=== PATIENT | female | born 1990 | race Caucasian/White ===

== ENCOUNTER 2019-07-24 10:51 | Emergency (ER) | payer BC, OTHER, SELFPAY ==
[2019-07-24 10:54] VITALS: BP 126/69; PULSE 89; RESP 14; TEMP 36.7; O2SAT 100; BMI 24.3
--- NOTE | 2019-07-24 11:12 | ED.VIS.GEN ---
History of Present Illness Chief Complaint: Vag Bld, Preg Informant: Patient Onset: Yesterday Context: Sudden Onset Timing: Continuous Quality: Vaginal bleeding due to subchorionic hemorrhage Current Severity: Mild Maximum Severity: Mild Worsened by: Nothing Relieved by: Nothing Associated Symptoms: No associated symptoms Narrative: Patient is a G1, P0 AB 0 woman who presents with vaginal bleeding started yesterday. She is used 3 pads since yesterday. She has not passed clots. She contacted her OB's office, Dr. Eliza Parrish. Staff instructed her to come to the emergency department. She has a negative blood. She states she has received RhoGam since this is her third episode of bleeding. She was seen by specialist in [place] for infertility. She denies orthostatic symptoms. She denies dysuria or urgency. She does report frequency. She denies nausea vomiting. Denies black or maroon stool. She denies bruising easily. Prior similar symptoms: Yes Recent Illness/Hospitalization: Yes - Last ultrasound , July 17 - Past Medical History (1) No significant past medical history Status: Acute Past Medical History - Allergies and Home Meds Allergies/Adverse Reactions: Allergies No Known Allergies Allergy (Verified 07/24/19 10:53) Primary Care Physician: Luis Enrique Gambino [Primary Care Provider] - Prior records reviewed: No Past Medical History: None Surgical History: no surgical history Lives: Spouse/ Significant Other Smoking Status: Never smoker Alcohol: None Drugs: None Review of Systems General: Denies: Chills, Fever, Malaise, Subjective, Sweats, Weight loss, - Cardiovascular: Denies: Chest pain, Palpitations Respiratory: Denies: Dyspnea, Cough, Dyspnea on exertion Gastrointestinal: Denies: Abdominal pain, Nausea, Vomiting, Diarrhea, Melena, Hematochezia Genitourinary: Denies: Dysuria, Hematuria, Frequency Musculoskeletal: Denies: Myalgias, Arthralgias, Neck pain, Back pain, Swelling, Extremity Pain, -, - Skin: Denies: Rash, Wounds Neurological: Denies: Weakness Physical Exam Vital Signs/Narrative: Vital Signs Temp Pulse Resp BP Pulse Ox 07/24/19 10:54 98.1 F 89 14 126/69 H 100 Inital Vital Signs reviewed: Yes General: Well nourished, Well developed, No Acute Distress Head: Normocephalic Eyes: Perrl, EOMI. Negative for: Pale conjunctiva, Scleral icterus ENT: Moist mucous membranes, No rhinorrhea Neck: Supple, Nontender, No lymphadenopathy, No JVD Cardiovascular: Regular rate, Regular rhythm, No murmurs, Normal S1, Normal S2 Respiratory: No distress, CTA bilaterally, Chest nontender Abdomen: Soft, Nontender, Nondistended, Normal bowel sounds Back: Nontender, Normal Inspection Skin: Normal color, No rash Neurological: Alert, Oriented x3, Cranial nerves II-XII grossly intact, Normal Strength, Normal Sensation Psychological: Normal affect, Normal Mood Diagnostic/Tx/Re-eval - Medical Decision Making Heart tones were ordered. Nurse states she was not able to get heart tones. Will perform transabdominal ultrasound to evaluate for viability of . Patient's history and physical was discussed with Dr. Cecil Dye covering for Dr. Eliza Parrish. Plan is outpatient follow-up next week. Procedures Procedure(s): His abdominal ultrasound reveals a single live IUP. Heartbeat approximately 140. Ovaries appear normal. ED Disposition - Plan for ED Patient: Disposition: Home or Assisted Living Diagnosis: Subchorionic hemorrhage in first trimester Instructions: POSSIBLE MISCARRIAGE (Threatened ) Referrals: Luis Enrique Gambino [Primary Care Provider] - Eliza Parrish MD [STAFF PHYSICIAN] - 3-5 Days Additional Instructions: Call Dr. Eliza Parrish's office to be seen next week. If you have bleeding of 1 or greater than 1 pad per hour for 4 continuous hours, return to the emergency department. If you are passing large clots, return to the emergency department. If you become lightheaded or have a low blood pressure, return to the emergency department
[2019-07-24 12:01] VITALS: RESP 14
== END 2019-07-24 12:01 | disposition home or self-care (01) ==
PROVIDERS: Emergency Provider Emergency Medicine; Family Provider Family Medicine; PCP Family Medicine
DX: O20.8 Other hemorrhage in early pregnancy (principal); Z3A.00 Weeks of gestation of pregnancy not specified
CPT/HCPCS: 99283

== ENCOUNTER → 2019-11-10 12:27 | Outpatient (CLI) | payer BC, SELFPAY ==
[2019-10-10 12:57] VITALS: BMI 24.3
[2019-11-10 12:52] LABS: Absolute Lymphocyte Count 2.06 X10^3/uL (0.83-4.51); Absolute Neutrophil Count 7.8 X10^3/uL (2.0-7.7); Basophil# 0.04 X10^3/uL; Basophil% 0.4 % (0-1); Eosinophil# 0.06 X10^3/uL; Eosinophils% 0.6 % (0-5); Hematocrit 33.4 % (37-47); Hemoglobin 11.2 g/dL (12.0-15.0); Lymphocyte # 2.06 X10^3/ul (4.0); Lymphocyte % 19.1 % (19-41); Mean Corp Hgb Conc 33.5 g/dL (32-36); Mean Corpuscular Hgb 30.9 pg (27.0-32.0); Mean Platelet Vol. 9.4 fl (6.2-12.0); Monocyte# 0.82 X10^3/uL; Monocyte% 7.6 % (0-10); NRBC Flagged by Analyzer 0 % (0-5); Neutrophil # 7.75 X10^3/uL (2.7-7.7); Neutrophil % 71.6 % (47-70); Platelet Count 244 K/mm3 (150-450); RBC Distribution Width CV 11.9 % (11.6-14.6); RBC Distribution Width SD 40.3 fl (35.1-43.9); Red Blood Count 3.63 M/mm3 (4.2-5.4); White Blood Count 10.8 K/mm3 (4.4-11.0)
[2019-11-10 13:00] LABS: Glucose Challenge Gest 1H 50g 118 mg/dL (70-140)
== END ==
PROVIDERS: Nurse Practitioner Women's Health; PCP Family Medicine; Referring Provider Obstetrics & Gynecology; Visit Provider Obstetrics & Gynecology
DX: O26.899 Other specified pregnancy related conditions, unspecified trimester (principal); Z67.91 Unspecified blood type, Rh negative
CPT/HCPCS: 36415; 82950; 85025; 86850; 86900; 86901

== ENCOUNTER → 2020-01-09 16:14 | Outpatient (CLI) | payer BC, SELFPAY ==
[2020-01-09 15:09] VITALS: BMI 24.3
== END ==
PROVIDERS: PCP Family Medicine; Referring Provider Obstetrics & Gynecology; Visit Provider Obstetrics & Gynecology
DX: O09.90 Supervision of high risk pregnancy, unspecified, unspecified trimester (principal); Z3A.00 Weeks of gestation of pregnancy not specified
CPT/HCPCS: 87081

== ENCOUNTER 2020-01-31 02:27 | Inpatient (IN) | payer BC, SELFPAY ==
[2020-01-30 11:38] VITALS: BMI 24.3
[2020-01-31] VITALS (24 sets, daily range): BP systolic 104–133; BP diastolic 63–84; PULSE 72–100; RESP 16; TEMP 35.7–37.9; O2SAT 97–98; BMI 29.6
[2020-01-31] MEDS: Lactated Ringers 500 ML 999 ML IV (02:25)
[2020-01-31 02:47] LABS: Absolute Lymphocyte Count 1.89 X10^3/uL (0.83-4.51); Absolute Neutrophil Count 10.3 X10^3/uL (2.0-7.7); Basophil# 0.04 X10^3/uL; Basophil% 0.3 % (0-1); Eosinophil# 0.04 X10^3/uL; Eosinophils% 0.3 % (0-5); Hematocrit 34.5 % (37-47); Hemoglobin 11.4 g/dL (12.0-15.0); Lymphocyte # 1.89 X10^3/ul (4.0); Lymphocyte % 14.1 % (19-41); Mean Corpuscular Hgb 27.5 pg (27.0-32.0); Mean Corpuscular Volume 83.3 fL (81-99); Mean Platelet Vol. 10.3 fl (6.2-12.0); Monocyte% 7.5 % (0-10); NRBC Flagged by Analyzer 0 % (0-5); Neutrophil # 10.34 X10^3/uL (2.7-7.7); Neutrophil % 77.4 % (47-70); Platelet Count 264 K/mm3 (150-450); RBC Distribution Width CV 13.5 % (11.6-14.6); RBC Distribution Width SD 40.5 fl (35.1-43.9); Red Blood Count 4.14 M/mm3 (4.2-5.4); White Blood Count 13.4 K/mm3 (4.4-11.0)
[2020-01-31] MEDS: Lactated Ringers 1,000 ML 50 ML IV (02:56)
--- NOTE | 2020-01-31 03:42 | HP.PCM_ITS ---
- Problem List (1) Subchorionic hematoma Status: Acute Qualifiers: Comment: persistent stable. plan weekly nsts until delivery, deliver at 39 weeks. growth q 4 weeks (2) Marginal insertion of umbilical cord affecting management of mother Status: Acute Comment: nl fu growth (3) Rh negative status during Status: Acute Qualifiers: Comment: Rhogam given at [facility] on 06/10/19 (4) History of in vitro fertilization Status: Acute Comment: 2nd transfer. plan echo at 22-24 (5) Status: Acute Qualifiers: Comment: normal genetics and carrier screening. missed getting AFP. Neg urine culture at [facility]. Anatomy US normal. Growth US normal (6) Supervision of high risk , antepartum Status: Acute Comment: PRR ANUPAM 02/01/20 gender surprise Lexx (7) PCOS (polycystic ovarian syndrome) Status: Chronic History Date of Admission: 01/31/20 Final ANUPAM: 02/01/20 Gestational age: 39 Weeks and 6 Days History of this : This is a 29 year-old, G 1P0, at 39 weeks gestational age presents IAL 6 cm. she denies any significant vb lof admits good fm. she has had a complicated by IVF, marginal cord insertion, and a small persistent subchorionic hematoma. testing has been reassuring Medical History: Medical History (Last Reviewed 01/30/20 @ 10:48 by Florence Keen) PCOS (polycystic ovarian syndrome) (Chronic) E28.2 Allergies No Known Allergies Allergy (Verified 01/30/20 10:48) Home Medications: Home Medications vitamin #56-iron 35 mg and 5 mg-folic acid 1 mg-dha capsule 1 cap PO QHS 01/31/20 Smoking Status: Never smoker Number of Fetus(es): 1 NST - FHR Rate Baby A Baseline: 130 Variability:: Moderate Accelerations:: 15 x 15 Decelerations:: None NST Reactive:: Yes FHR Category:: Category I Uterine Activity:: q 2-3 History Past Pregnancies: Past Pregnancies Delivery Date Name GA/ Weeks Outcome Route Wt Sex Labor Length Anesthesia Delivery Location Provider FOB Labs: Mom's Labs & Results 01/31/20 01/31/20 02:25 02:25 WBC 13.4 H RBC 4.14 L Hgb 11.4 L Hct 34.5 L MCV 83.3 MCH 27.5 MCHC 33.0 RDW Std Deviation 40.5 RDW Coeff of Jayce 13.5 Plt Count 264 MPV 10.3 Immature Gran % (Auto) 0.400 Neut % (Auto) 77.4 H Lymph % (Auto) 14.1 L Meagher % (Auto) 7.5 Eos % (Auto) 0.3 Baso % (Auto) 0.3 Absolute Neuts (auto) 10.3 H Absolute Lymphs (auto) 1.89 Nucleated RBC % 0 Blood Type Pending Antibody Screen Pending Course Did the patient receive Yes care? Labs Blood Type: A RH: NEGATIVE RPR/VDRL/Syphilis Nonreactive Rubella status Immune HbSAg Negative Date Done: 07/01/19 Chlamydia Negative Gonorrhea Negative HIV/AIDS Non-Reactive Group B Strep: Negative Social History Marital Status: Alleged father Lexx Hx Smoking No Smoking Status Never smoker Expected Infant Delivery Method: Spontaneous Vaginal Review of Systems Constitutional: Denies: Fever, Malaise Eyes: Denies: Blurred vision, Vision Change HEENT: Denies: Head Aches, Visual Changes Cardiovascular: Denies: Chest Pain, Palpitations Respiratory: Denies: Cough, Shortness of Breath, Wheezing Gastrointestinal: Denies: Abdominal Pain, Diarrhea, Nausea, Vomiting Genitourinary: Denies: Dysuria, Hematuria Musculoskeletal: Denies: Joint Pain, Muscle pain Skin: Denies: Lesions, Rash Neurological: Denies: Blurred vision, Focal weakness, Headaches Psychiatric: Denies: Anxiety, Depression Endocrine: Denies: Heat/ Cold Intolerance Hematologic/ Lymphatic: Denies: Easy Bruising, Easy Bleeding Physical Exam Vitals: Vital Signs Temp Pulse BP Pulse Ox 97.3 F L 79 127/84 H 98 01/31/20 03:32 01/31/20 03:32 01/31/20 03:32 01/31/20 02:34 General: Alert, Cooperative, No apparent distress HEENT: Atraumatic, Normocephalic. Negative for: Thyromegaly, Lymphadenopathy Cardiovascular: Regular rate Lungs: Normal air movement Abdomen: Soft, Non Tender, Gravid Neurological: Deep Tendon Reflexes 2+/4 and Symmetrical, Neuro grossly intact. Negative for: Clonus VP RESPIRATORY: Normal external genitalia. Negative for: Vulvar lesions Estimated gestational size: Appropriate for gestational size Presentation: Cephalic Assessment/Plan All Active Problems (Last Reviewed 01/30/20 @ 10:48 by Florence Keen) Subchorionic hematoma (Acute) Marginal insertion of umbilical cord affecting management of mother (Acute) Rh negative status during (Acute) History of in vitro fertilization (Acute) (Acute) Supervision of high risk , antepartum (Acute) No significant past medical history (Resolved) Subchorionic hemorrhage (Resolved) This is a 29 year-old, at 39 weeks gestational age presents IAL. Patient presents IAL, plan expectant management for , AROM light Mec. Pain management: Prefers epidural if able. GBS negative. Management of any complications: IVF, marginal cord insertion, subchorionic hematoma I have reviewed the [facility] and made any clinically relevant updates. Essential Procedure Criteria Procedure Essential: Yes Criteria Note: On 12/23/2019 the [place] Department of Health ([facility]) Public Order signed by [facility] Director Torri Sanders M.D., regarding the Management of Non- Essential Surgeries and Procedures for the purpose of preserving Personal Protective Equipment (PPE) and critical hospital capacity and resources within [place] went into effect as of 12/24/2019 at 5:00PM. According to the [facility] Public Order: This action will remain in full force and effect until the State of Emergency declared by the Governor no longer exists or the Director of the [facility] rescinds or modifies this Order.. This [facility] order stated all non-essential or elective surgeries and procedures that utilize PPE should be delayed unless there is undue risk to the current or future health of a patient. After reviewing the aforementioned [facility] Public Order and the patients clinical case, I have determined that the scheduled procedure meets the criteria to go forward. Risk to Patient if Procedure Delayed: Threat of permanent dysfunction of an extremity or organ system
[2020-01-31] MEDS: Oxytocin 30 units/NS 500 ml 30 UNITS/500 ML IV.SOLN 334 UNITS IV (05:37)
--- NOTE | 2020-01-31 06:18 | PCM.OPRPT ---
Problem List (1) Subchorionic hematoma Status: Acute Qualifiers: Comment: persistent stable. plan weekly nsts until delivery, deliver at 39 weeks. growth q 4 weeks (2) Marginal insertion of umbilical cord affecting management of mother Status: Acute Comment: nl fu growth (3) Rh negative status during Status: Acute Qualifiers: Comment: Rhogam given at [facility] on 06/10/19 (4) History of in vitro fertilization Status: Acute Comment: 2nd transfer. plan echo at 22-24 (5) Status: Acute Qualifiers: Comment: normal genetics and carrier screening. missed getting AFP. Neg urine culture at [facility]. Anatomy US normal. Growth US normal (6) Supervision of high risk , antepartum Status: Acute Comment: PRR ANUPAM 02/01/20 gender surprise Lexx (7) PCOS (polycystic ovarian syndrome) Status: Chronic Vaginal Delivery Maternal Presentation: Active Labor al [id number] Amniotic Membrane Rupture Type: Artificial Amniotic Fluid Description: Clear Final ANUPAM: 02/01/20 Gestational age: 39 Weeks and 6 Days Date of Procedure: 01/31/20 Pre-Operative Diagnosis: ial Post-Operative Diagnosis: same Surgery/ Procedure Performed: Spontaneous Vaginal Delivery Type of Anesthesia: Local with 1% lidocaine Description of Procedure: Patient began pushing and delivered the head in the BRENDA presentation. The head was delivered atraumatically and a loose nuchal cord ?1 was identified and easily reduced over the infant's head. The anterior and posterior shoulders delivered without complication followed by the rest of the infant and the infant was placed on the maternal abdomen. Delayed cord clamping was employed for approximately 60 seconds. Cord was clamped and cut and gentle traction was applied to the cord and the placenta delivered spontaneously immediately following it was noted to be intact with three-vessel cord. The perineum and vagina were inspected and noted to have a second degree laceration that was injected with lidocaine and repaired in the usual fashion with 3-0 vicryl rapide. EBL was 300 cc. Patient and tolerated delivery well. Presentation: BRENDA Placental Delivery Description: Spontaneous Placenta Disposition: [facility] Cord Entanglement: Around neck x 1, loose Estimated Blood Loss: 300 Infant A gender: Male (1 minute): 8 (5 minute): 9 Episiotomy Description: None Laceration: Perineal Extension/lac, 2nd degree Medications given after delivery: IV Pitocin Complications: None Multi Select Codes - Urinary/Genital Urinary/Genital CPT Codes: 90209 Vaginal Delivery [facility]
[2020-01-31] MEDS: Acetaminophen 500 MG Tablet 1000 MG PO ×2 (07:10→19:37)
[2020-01-31] MEDS: Naproxen 250 MG Tablet 500 MG PO (13:09)
[2020-02-01 00:31] VITALS: TEMP 36.8
[2020-02-01 00:32] VITALS: BP 103/65; PULSE 86
[2020-02-01 00:33] VITALS: BP 103/65; PULSE 86; RESP 18; TEMP 36.8
[2020-02-01 05:02] VITALS: BP 113/67; PULSE 86; RESP 18; TEMP 37.1
[2020-02-01 08:00] VITALS: BP 122/77; PULSE 83; RESP 15; TEMP 36.4
[2020-02-01 08:27] VITALS: BP 122/77; PULSE 83; TEMP 36.4
--- NOTE | 2020-02-01 10:59 | PCM.PN.OB ---
Subjective: doing well no complaints pain controlled no CP SOB N V ambulating well tolerating po lochia moderate, going well - Physical Exam Vitals/I&O's: Vital Signs Temp Pulse Resp BP Pulse Ox 97.5 F L 83 15 122/77 H 98 02/01/20 08:27 02/01/20 08:27 02/01/20 08:00 02/01/20 08:27 01/31/20 07:22 Oxygen Delivery Method Room Air Weight: 183 lb 8 oz Body Mass Index (BMI) 29.6 Intake and Output for Last 24 Hours 01/30/20 01/31/20 02/01/20 23:59 23:59 23:59 Intake Total 1134.17 / 1134.17 Balance 1134.17 / 1134.17 General: Alert, Oriented x3 Laboratory Results 01/31/20 13:48: Screen NEGATIVE, Baby's Blood Type A POSITIVE, Baby's CHOCO NEGATIVE Current Medications Acetaminophen (Tylenol) 1,000 mg PO Q8H PRN PRN PRN Reason: Pain Score 1-3/10 Last Admin: 01/31/20 19:37 Dose: 1,000 mg Documented by: Bisacodyl (Dulcolax) 10 mg RECTAL UD PRN PRN Reason: If no BM Dibucaine (Dibucaine) 1 applic TOPICAL TID PRN PRN; Protocol PRN Reason: Discomfort Hydrocortisone (Hytone) 1 applic TOPICAL TID PRN PRN; Protocol PRN Reason: Discomfort Methylergonovine Maleate (Methergine) 0.2 mg IM X1 PRN PRN Reason: Excess bleeding/uterine atony Naproxen (Naprosyn) 500 mg PO Q8H PRN PRN PRN Reason: Pain Score 1-3/10 Last Admin: 01/31/20 13:09 Dose: 500 mg Documented by: Ondansetron HCl (Zofran) 4 mg IV Q4H PRN PRN PRN Reason: Nausea Oxycodone HCl (Oxyir) 5 - 10 mg PO Q4H PRN PRN PRN Reason: Pain Score 4-10/10 Senna/Docusate Sodium (Senokot-S, Chantel-Colace) 1 - 2 tablet PO DAILY PRN PRN PRN Reason: Constipation Simethicone (Mylicon) 80 mg PO PCHS PRN PRN Reason: Indigestion/Stomach pain Sodium Chloride () 5 - 15 ml IV UD PRN PRN Reason: SALINE FLUSH Medical Necessity - Tobacco Use Smoking Status: Never smoker Assessment/Plan All Active Problems (Last Reviewed 01/30/20 @ 10:48 by Florence Keen) Subchorionic hematoma (Acute) Marginal insertion of umbilical cord affecting management of mother (Acute) Rh negative status during (Acute) History of in vitro fertilization (Acute) (Acute) Supervision of high risk , antepartum (Acute) No significant past medical history (Resolved) Subchorionic hemorrhage (Resolved) s/p PPD # 1 1. routine post delivery care 2. breast feeding- support given 3. rh negative 4. rubella immune
--- NOTE | 2020-02-01 11:00 | DCINST_ITS ---
Discharge Diet: No Restrictions Discharge Activity: Return to Normal Activity, May not drive while taking narcotic pain medications., May Shower May resume sexual activity in: 4-6 weeks Call your doctor if your incision/area has: Continuous Slow Oozing, Sudden Increased Bleeding, Increased Pain/ Swelling, Increased Redness, Foul Smelling Discharge Additional Instructions: If you experience any of the following, contact your healthcare provider. * Bleeding that soaks a pad every hour for 2 hours * Fever 100.4 or higher * Unrelieved incision or abdominal pain * Swelling, redness, discharge or bleeding from your incision or episiotomy site * Your incision begins to separate * Problems urinating (including inability to urinate or burning while urinating). * Visual changes * Severe headache * Flu-like symptoms * Pain or redness in one of both of your breasts * Pain, warmth, tenderness or swelling in your legs, especially the calf area * Frequent nausea and vomiting * Symptoms of depression or anxiety If you experience any of the following, call 911 or go to the nearest Emergency Room. * Chest pain * Problems breathing * Seizure activity * Partial or complete paralysis of a body part, slurred speech, weakness or drooping of the face, or a sudden inability to walk or hold your balance Allergies/Adverse Reactions: Allergies No Known Allergies Allergy (Verified 01/30/20 10:48) Medications to take at Discharge vitamin #56-iron 35 mg and 5 mg-folic acid 1 mg-dha capsule 1 cap PO QHS 01/31/20 Please Follow Up With: Eliza Parrish MD - [phone] When: Call to make an appointment with your doctor in 6 weeks. If you had elevated Blood pressure or 4th degree laceration you will need to be seen in 2 weeks. Primary Care Physician: Luis Enrique Gambino [Primary Care Provider] - Test Results: Test results from this visit will be discussed in further detail at your follow- up appointment, if applicable.
--- NOTE | 2020-02-01 11:00 | PCM.DCVAG ---
Discharge Diet: No Restrictions Discharge Activity: Return to Normal Activity, May not drive while taking narcotic pain medications., May Shower May resume sexual activity in: 4-6 weeks Call your doctor if your incision/area has: Continuous Slow Oozing, Sudden Increased Bleeding, Increased Pain/ Swelling, Increased Redness, Foul Smelling Discharge Additional Instructions: If you experience any of the following, contact your healthcare provider. Bleeding that soaks a pad every hour for 2 hours Fever 100.4 or higher Unrelieved incision or abdominal pain Swelling, redness, discharge or bleeding from your incision or episiotomy site Your incision begins to separate Problems urinating (including inability to urinate or burning while urinating). Visual changes Severe headache Flu-like symptoms Pain or redness in one of both of your breasts Pain, warmth, tenderness or swelling in your legs, especially the calf area Frequent nausea and vomiting Symptoms of depression or anxiety If you experience any of the following, call 911 or go to the nearest Emergency Room. Chest pain Problems breathing Seizure activity Partial or complete paralysis of a body part, slurred speech, weakness or drooping of the face, or a sudden inability to walk or hold your balance Allergies/Adverse Reactions: Allergies No Known Allergies Allergy (Verified 01/30/20 10:48) Medications to take at Discharge vitamin #56-iron 35 mg and 5 mg-folic acid 1 mg-dha capsule 1 cap PO QHS 01/31/20 Please Follow Up With: Eliza Parrish MD - [phone] When: Call to make an appointment with your doctor in 6 weeks. If you had elevated Blood pressure or 4th degree laceration you will need to be seen in 2 weeks. Primary Care Physician: Luis Enrique Gambino [Primary Care Provider] - Test Results: Test results from this visit will be discussed in further detail at your follow-up appointment, if applicable.
== END 2020-02-01 11:50 | disposition home or self-care (01) | DRG 807 ==
LOC: WPOUT 02:29 → WP 02:29
PROVIDERS: Admitting Provider Obstetrics & Gynecology; PCP Family Medicine; Referring Provider Obstetrics & Gynecology; Visit Provider Obstetrics & Gynecology
DX: O43.193 Other malformation of placenta, third trimester (principal); O77.0 Labor and delivery complicated by meconium in amniotic fluid; O69.81X0 Labor and delivery complicated by cord around neck, without compression, not applicable or unspecified; O70.1 Second degree perineal laceration during delivery; E28.2 Polycystic ovarian syndrome; Z3A.39 39 weeks gestation of pregnancy; Z37.0 Single live birth
CPT/HCPCS: 36415; 59025; 59050; 85025; 85461; 86850; 86870; 86900; 86901; 90384; 99218; J7120; G0378; J2790

== ENCOUNTER → 2020-03-18 | Outpatient (CLI) | payer BC, SELFPAY ==
[2020-03-18 09:52] VITALS: BMI 29.6
[2020-03-22 14:15] LABS: HPV Reflexed? NOT INDICATED
== END | disposition home or self-care (01) ==
LOC: LABSPEC 13:17
PROVIDERS: PCP Family Medicine; Visit Provider Obstetrics & Gynecology
DX: Z12.4 Encounter for screening for malignant neoplasm of cervix (principal)
CPT/HCPCS: 88175; G0145

== ENCOUNTER 2021-12-28 08:04 | Outpatient (CLI) | payer BC, SELFPAY ==
[2021-12-28 08:26] LABS: Absolute Lymphocyte Count 1.95 X10^3/uL (0.83-4.51); Absolute Neutrophil Count 9.5 X10^3/uL (2.0-7.7); Basophil# 0.03 X10^3/uL; Basophil% 0.2 % (0-1); Eosinophil# 0.08 X10^3/uL; Eosinophils% 0.6 % (0-5); Hematocrit 34.7 % (37-47); Hemoglobin 11.9 g/dL (12.0-15.0); Lymphocyte # 1.95 X10^3/ul (0.83-4.51); Lymphocyte % 15.7 % (19-41); Mean Corp Hgb Conc 34.3 g/dL (32-36); Mean Corpuscular Hgb 30.6 pg (27.0-32.0); Mean Corpuscular Volume 89.2 fL (81-99); Mean Platelet Vol. 9.3 fl (6.2-12.0); Monocyte# 0.78 X10^3/uL; Monocyte% 6.3 % (0-10); NRBC Flagged by Analyzer 0 % (0-5); Neutrophil # 9.51 X10^3/uL (2.7-7.7); Neutrophil % 76.6 % (47-70); Platelet Count 262 K/mm3 (150-450); RBC Distribution Width CV 12.3 % (11.6-14.6); RBC Distribution Width SD 39.2 fl (35.1-43.9); Red Blood Count 3.89 M/mm3 (4.2-5.4); White Blood Count 12.4 K/mm3 (4.4-11.0)
[2021-12-28 08:51] LABS: Glucose Challenge Gest 1H 50g 134 mg/dL (70-140)
== END 2021-12-28 23:59 | disposition home or self-care (01) ==
PROVIDERS: PCP Family Medicine; Referring Provider Obstetrics & Gynecology; Visit Provider Obstetrics & Gynecology
DX: O26.899 Other specified pregnancy related conditions, unspecified trimester (principal); Z67.91 Unspecified blood type, Rh negative
CPT/HCPCS: 36415; 82950; 85025; 86850; 86900; 86901

== ENCOUNTER 2022-01-04 07:47 | Outpatient (CLI) | payer BC, SELFPAY ==
--- NOTE | 2022-01-04 07:48 | US_ITS ---
STUDY: SECOND AND THIRD TRIMESTER OBSTETRICAL ULTRASOUND REASON FOR EXAM: Female, 31 years old growth LMP: 06/08/2021. TECHNIQUE: Transabdominal TECHNICAL QUALITY: Adequate. PRIOR ULTRASOUND: None. FINDINGS: There is a single intrauterine fetus. The fetus is in a cephalic presentation. There is demonstrated cardiac activity with a heart rate of 126 bpm. There is a normal amniotic fluid volume. The largest amniotic fluid pocket measures 4.0 cm. The amniotic fluid index (FRANCIS) is 11.8 cm. The placenta is posterior in location and is not low lying. There are Grade 0 placental changes. The cervix measures 4.8 cm in length. The adnexal regions are not visualized. BIOMETRY: BPD: 7.72 cm: 30 weeks, 6 days HC: 28.87 cm: 31 weeks, 5 days AC: 26.71 cm: 30 weeks, 5 days FL: 5.94 cm: 30 weeks, 6 days CI: 77% FL/BPD: 77% FL/HC: FL/AC: 22% HC/AC: 1.08 age by current US: 31 weeks, 0 days. ANUPAM by current US: 03/08/2022. Estimated weight: 1676 grams, +/- 251 grams, 71 %. Age by LMP: 30 weeks, 0 days. ANUPAM by LMP: 03/15/2022. US/OB Limited With Biometrics IMPRESSION: Single live intrauterine gestation with a mean gestational age of 31 weeks. Electronically Signed: Evens Tobias MD at 8:59 EDT ,
== END 2022-01-04 23:59 | disposition home or self-care (01) ==
LOC: OPUS 07:47
PROVIDERS: PCP Family Medicine; Referring Provider Nurse Practitioner Women's Health; Visit Provider Nurse Practitioner Women's Health
DX: O09.93 Supervision of high risk pregnancy, unspecified, third trimester (principal); Z78.9 Other specified health status; Z3A.30 30 weeks gestation of pregnancy
CPT/HCPCS: 76816

== ENCOUNTER → 2022-02-10 | Outpatient (CLI) | payer BC, SELFPAY ==
[2022-02-10 11:17] LABS: Absolute Neutrophil Count 7.7 X10^3/uL (2.0-7.7); Basophil# 0.05 X10^3/uL; Basophil% 0.5 % (0-1); Eosinophil# 0.05 X10^3/uL; Eosinophils% 0.5 % (0-5); Hematocrit 35.9 % (37-47); Hemoglobin 12.1 g/dL (12.0-15.0); Lymphocyte % 18.7 % (19-41); Mean Corp Hgb Conc 33.7 g/dL (32-36); Mean Corpuscular Volume 86.1 fL (81-99); Monocyte# 0.79 X10^3/uL; Monocyte% 7.4 % (0-10); NRBC Flagged by Analyzer 0 % (0-5); Neutrophil # 7.73 X10^3/uL (2.7-7.7); Neutrophil % 72.2 % (47-70); Platelet Count 277 K/mm3 (150-450); RBC Distribution Width CV 12.9 % (11.6-14.6); RBC Distribution Width SD 39.4 fl (35.1-43.9); Red Blood Count 4.17 M/mm3 (4.2-5.4); White Blood Count 10.7 K/mm3 (4.4-11.0)
[2022-02-10 11:34] LABS: ALB/GLOB Ratio 0.6 RATIO (0.9-2.4); AST(SGOT) 17 U/L (15-37); Alanine Aminotransfer ALT/SGPT 15 U/L (13-56); Albumin, Serum 2.4 g/dL (3.2-5.0); Alkaline Phosphatase 164 U/L (45-117); Anion Gap 6 (5-15); BUN 11 mg/dL (7-18); BUN/Creat Ratio 16.8 RATIO (10-20); Calcium,Total 8.2 mg/dL (8.5-10.1); Chloride 104 mmol/L (98-107); Creatinine, Serum 0.66 mg/dL (0.55-1.02); EST Glomerular Filtration Rate 113 mL/min (>60); Est Glom Filt Rate - Afr Amer 136 mL/min (>60); Globulin 4.1 g/dL (2.2-4.2); Glucose 87 mg/dL (74-106); Potassium 4.2 mmol/L (3.5-5.1); Protein, Total 6.5 g/dL (6.4-8.2); Sodium Level 135 mmol/L (136-145)
== END | disposition home or self-care (01) ==
LOC: PAVLAB 10:59
PROVIDERS: PCP Family Medicine; Referring Provider Nurse Practitioner Women's Health; Visit Provider Nurse Practitioner Women's Health
DX: O12.10 Gestational proteinuria, unspecified trimester (principal)
CPT/HCPCS: 36415; 80053; 85025

== ENCOUNTER → 2022-02-10 | Outpatient (CLI) | payer BC, SELFPAY ==
[2022-02-10 11:22] LABS: Protein:Creat Ratio 645 mg/g CRE (0-200)
== END | disposition home or self-care (01) ==
LOC: LABSPEC 11:01
PROVIDERS: PCP Family Medicine; Referring Provider Nurse Practitioner Women's Health; Visit Provider Nurse Practitioner Women's Health
DX: O12.10 Gestational proteinuria, unspecified trimester (principal)
CPT/HCPCS: 82570; 84156

== ENCOUNTER → 2022-02-13 | Outpatient (CLI) | payer BC, SELFPAY ==
[2022-02-13 09:15] LABS: Absolute Lymphocyte Count 1.71 X10^3/uL (0.83-4.51); Absolute Neutrophil Count 7.2 X10^3/uL (2.0-7.7); Basophil# 0.07 X10^3/uL; Basophil% 0.7 % (0-1); Eosinophil# 0.07 X10^3/uL; Eosinophils% 0.7 % (0-5); Hematocrit 37.5 % (37-47); Hemoglobin 12.5 g/dL (12.0-15.0); Lymphocyte # 1.71 X10^3/ul (0.83-4.51); Lymphocyte % 17.1 % (19-41); Mean Corp Hgb Conc 33.3 g/dL (32-36); Mean Corpuscular Hgb 28.7 pg (27.0-32.0); Mean Platelet Vol. 10.1 fl (6.2-12.0); Monocyte# 0.86 X10^3/uL; Monocyte% 8.6 % (0-10); NRBC Flagged by Analyzer 0 % (0-5); Neutrophil # 7.22 X10^3/uL (2.7-7.7); Neutrophil % 72.4 % (47-70); Platelet Count 261 K/mm3 (150-450); RBC Distribution Width CV 13.1 % (11.6-14.6); RBC Distribution Width SD 40.5 fl (35.1-43.9); Red Blood Count 4.36 M/mm3 (4.2-5.4)
[2022-02-13 09:42] LABS: Protein, Urine (Random) 297.6 mg/dL (<11.9); Protein:Creat Ratio 640 mg/g CRE (0-200)
[2022-02-13 09:56] LABS: ALB/GLOB Ratio 0.5 RATIO (0.9-2.4); AST(SGOT) 17 U/L (15-37); Alanine Aminotransfer ALT/SGPT 14 U/L (13-56); Albumin, Serum 2.4 g/dL (3.2-5.0); Alkaline Phosphatase 187 U/L (45-117); Anion Gap 6 (5-15); BUN 13 mg/dL (7-18); BUN/Creat Ratio 17.9 RATIO (10-20); Calcium,Total 8.7 mg/dL (8.5-10.1); Chloride 105 mmol/L (98-107); Creatinine, Serum 0.73 mg/dL (0.55-1.02); EST Glomerular Filtration Rate 100 mL/min (>60); Est Glom Filt Rate - Afr Amer 121 mL/min (>60); Globulin 4.6 g/dL (2.2-4.2); Glucose 76 mg/dL (74-106); Potassium 4.6 mmol/L (3.5-5.1); Sodium Level 136 mmol/L (136-145)
== END | disposition home or self-care (01) ==
LOC: PAVLAB 08:58
PROVIDERS: PCP Family Medicine; Referring Provider Nurse Practitioner Women's Health; Visit Provider Nurse Practitioner Women's Health
DX: O12.10 Gestational proteinuria, unspecified trimester (principal); Z3A.00 Weeks of gestation of pregnancy not specified
CPT/HCPCS: 36415; 80053; 82570; 84156; 85025

== ENCOUNTER → 2022-02-14 | Outpatient (CLI) | payer BC, SELFPAY ==
--- NOTE | 2022-02-14 07:47 | US_ITS ---
STUDY: SECOND AND THIRD TRIMESTER OBSTETRICAL ULTRASOUND - LIMITED REASON FOR EXAM: Female, 31 years old growth -- 38 weeks LMP: 06/08/2021. PRIOR ULTRASOUND: Comparison is made with prior examination dated 01/04/2022. TECHNIQUE: Transabdominal TECHNICAL QUALITY: Adequate. FINDINGS: There is a single intrauterine fetus. The fetus is in a cephalic presentation. There is demonstrated cardiac activity with a heart rate of 126 bpm. There is a normal amniotic fluid volume. The largest amniotic fluid pocket measures 4.8 cm x 2.1 cm. The amniotic fluid index (FRANCIS) is 11.8 cm. The placenta is posterior in location and is not low lying. There are Grade 1 placental changes. The cervix measures 3.3 cm in length. BIOMETRY: BPD: 8.67 cm: 34 weeks, 6 days HC: 32.78 cm: 37 weeks, 1 days AC: 31.91 cm: 35 weeks, 5 days FL: 7.03 cm: 36 weeks, 0 days Age by LMP: 35 weeks, 6 days. ANUPAM by LMP: 03/15/2022. age by prior US: 36 weeks, 6 days. ANUPAM by prior US: 03/08/2022. age by current US: 35 weeks, 6 days. ANUPAM by current US: 03/15/2022. Estimated weight: 2791 grams, +/- 419 grams, 51 percentile. US/OB Limited With Biometrics IMPRESSION: Single live intrauterine gestation with a mean gestational age of 36 weeks and 6 days. The measurements obtained today fall within the normal expected range. Electronically Signed: Evens Tobias MD at 13:56 EDT ,
== END | disposition home or self-care (01) ==
LOC: OPUS 07:46
PROVIDERS: PCP Family Medicine; Referring Provider Obstetrics & Gynecology; Visit Provider Obstetrics & Gynecology
DX: O09.813 Supervision of pregnancy resulting from assisted reproductive technology, third trimester (principal); Z3A.38 38 weeks gestation of pregnancy
CPT/HCPCS: 76816

== ENCOUNTER 2022-02-16 09:15 | Outpatient (CLI) | payer BC, SELFPAY ==
[2022-02-16 09:42] VITALS: TEMP 36.3; O2SAT 97
[2022-02-16 09:43] VITALS: BP 125/87; PULSE 77
[2022-02-16 09:44] VITALS: BMI 29.1
[2022-02-16 09:50] VITALS: PULSE 88; O2SAT 97
--- NOTE | 2022-02-16 10:04 | OB.TRI.HP_ITS ---
HPI - General HPI Narrative KAY PIRES, is a 31 F who presents to L&D to rule out PIH Maternal Data Information ANUPAM Calculator Estimated Delivery Date Method Current WG Current Estimate 03/15/22 Manual 38w 6d PFSH PFSH Medical History (Updated 03/07/22 @ 08:[address] Eun Dominguez, DO) History of severe pre-eclampsia PCOS (polycystic ovarian syndrome) Home Medications PNV #[id number] acid-dha 1 cap PO QHS 01/31/20 [History Last Taken 02/22/22 0900] Allergy/AdvReac Type Severity Reaction Status Date / Time No Known Allergies Allergy Verified 03/01/22 11:15 Social History Smoking Status: Never smoker alcohol intake: never substance use type: does not use caffeine: No what type of physical activity do you participate in: none seatbelt use: always do you feel safe at home: Yes additional social history: [place] History 2 Elective abortions Hx Para 2 Spontaneous abortions Hx # Term Pregnancies Ectopic pregnancies Hx # Pregnancies Multiple births # of living children 2 Past Pregnancies Del. Date Name GA/Weeks Outcome Route Bth Weight Gen Labor Lgth Anesthesia Del Locatn Provider FOB 01/31/20 Junior 39 live - full term 7lbs 13oz Male l ocal [facility] Delivery Date: 01/31/20 2 DEGREE LACERATION Florence Keen Visit Details Expected Delivery Route/Plan Labor Preferences- CB/BF classes: no labor support person: Emily labor intervention preferences: [] pain management options preferred: epidural cut cord/dad catch: yes : yes PP control planned: discussed discussed possible routes of delivery and associated risks: [] special requests: [] Plans Covid status: non immune, moderna Flu vaccine: given Tdap vaccine: given Rhogam: given LARC form signed: yes Problem list reviewed and updated with the most current plan of care details and appropriate orders placed. Relevant counseling for the gestational age provided. Continue routine care and follow up unless otherwise noted in visit notes/problem list details OB Flowsheet Initial Weight: 160 lb Date -?-?-?-?-?-?-?-?-?-?-?-?- EGA Weight BP Urine Prot -?-?-?-?-?-?-?-?-?-?-?-?- Glucose FHR FuHt Pres Dilation -?-?-?-?-?-?-?-?-?-?-?-?- Effaced St Visit Note 09/19/21 -?-?-?-?-?-?-?-?-?-?-?-?- 14w 5d 160 lb (+0 oz) 110/60 -?-?-?-?-?-?-?-?-?-?-?-?- 160 -?-?-?-?-?-?-?-?-?-?-?-?- SM- no vb crampi ng 10/17/21 -?-?-?-?-?-?-?-?-?-?-?-?- 18w 5d 167 lb 4 oz (+7 lb 4 oz) 100/70 Negative -?-?-?-?-?-?-?-?-?-?-?-?- Negative 155 -?-?-?--?-?-?-?-?-?-?-?-?- JV- no lof, vagi nal bleeding, or cramping. some nausea. will start back up face to face at work. 11/18/21 -?-?-?-?-?-?-?-?-?-?-?-?- 23w 2d 165 lb 4 oz (+5 lb 4 oz) 106/70 Negative -?-?-?-?-?-?-?-?-?-?-?-?- Negative 137 -?-?-?-?-?-?-?-?-?-?-?-?- JV- no lof, vagi nal bleeding ,or cramping. some movement has started to be noticed. pt to start a baby asa and plan for growth scans due to exposure to covid. She had a echo that was normal recently. 12/15/21 -?-?-?-?-?-?-?-?-?-?-?-?- 27w 1d 168 lb 4 oz (+8 lb 4 oz) 100/72 Negative -?-?-?-?-?-?-?-?-?-?-?-?- Negative 135 Cephalic -?-?-?-?-?-?-?-?-?-?-?-?- JV- no complaint s today. gct ordered, tdap given. rhogam next visit. 12/28/21 -?-?-?-?-?-?-?-?-?-?-?-?- 29w 0d 169 lb 4 oz (+9 lb 4 oz) 118/70 Negative -?-?-?-?-?-?-?-?-?-?-?-?- Negative 134 29 -?-?-?-?-?-?-?-?-?-?-?-?- MH-No Vb, LOF Go od FM. 28 wk labs, rhogam and Larc today. Growth US 30-32 wk ordered 01/13/22 -?-?-?-?-?-?-?-?-?-?-?-?- 31w 2d 172 lb 6 oz (+12 lb 6 oz) 118/80 Negative -?-?-?-?-?-?-?-?-?-?-?-?- Negative 145 32 Cephalic -?-?-?-?-?-?-?-?-?-?-?-?- JV- no lof, vagi nal bleeding, or dec fm. she had her follow up growth at 30 weeks, will rpt at 34 weeks. 01/27/22 -?-?-?-?-?-?-?-?-?-?-?-?- 33w 2d 179 lb 4 oz (+19 lb 4 oz) 110/74 Negative -?-?-?-?-?-?-?-?-?-?-?-?- Negative 150 33 Cephalic -?-?-?-?-?-?-?-?-?-?-?-?- JV- no complaint s today. next ultrasound 02/1402/10/22 -?-?-?-?-?-?-?-?-?-?-?-?- 35w 2d 181 lb (+21 lb) 112/80 -?-?-?-?-?-?-?-?-?-?-?-?- 146 35 Cephalic -?-?-?-?-?-?-?-?-?-?-?-?- MH-no VB, LOF. G ood FM. Growth US 02/1402/13/22 -?-?-?-?-?-?-?-?-?-?-?-?- 35w 5d 180 lb (+20 lb) 111/75 3+ -?-?-?-?-?-?-?-?-?-?-?-?- Negative 140 -?--?-?-?-?-?-?-?-?-?-?-?- MH-NST only reac tive. Rpt Pre E labs. Denies headache/vision changes 02/16/22 -?-?-?-?-?-?-?-?-?-?-?-?- 36w 1d 179 lb (+19 lb) 117/77 2+ -?-?-?-?-?-?-?-?-?-?-?-?- Negative 140 36 Cephalic 1 -?-?-?-?-?-?-?-?-?-?-?-?- 50 JV- nst only reading 10 x 20 accels with moder and mild variability toward the end. sending to L&D for further monitoring and possible bpp. gbs collected. 02/16/22 -?-?-?-?-?-?-?-?-?-?-?-?- 36w 1d 180 lb 8.937 oz (+20 lb 8.937 oz) 125/87 -?-?-?-?-?-?-?-?-?-?-?-?- -?-?-?-?-?-?-?-?-?-?-?-?- 02/16/22 -?-?-?-?-?-?-?-?-?-?-?-?- 36w 1d -?-?-?-?-?-?-?-?-?-?-?-?- -?-?-?-?-?-?-?-?-?-?-?-?- 02/21/22 -?-?-?-?-?-?-?-?-?-?-?-?- 36w 6d 178 lb (+18 lb) 118/76 2+ -?-?-?-?-?-?-?-?-?-?-?-?- Negative 140 -?-?-?-?-?-?-?-?-?-?-?-?- MH-nst only reac tive. IOL 02/23 at 7pm. 02/22/22 -?-?-?-?-?-?-?-?-?-?-?-?- 37w 2d 181 lb 7.047 oz (+21 lb 7.047 oz) 156/103 141/98 142/99 160/110 124/64 107/70 117/84 114/80 110/75 110/75 110/75 106/69 114/75 126/79 126/79 123/87 123/87 117/75 117/75 105/57 105/57 113/75 113/75 120/80 120/80 108/75 108/75 115/70 115/70 117/83 117/83 122/86 122/86 116/72 124/81 119/67 113/63 117/58 114/80 -?-?-?-?-?-?-?-?-?-?-?-?- -?-?-?-?-?-?-?-?-?-?-?-?- ROS Constitutional Constitutional: Reports systems reviewed and no addt'l complaints, except as documented Gastrointestinal Gastrointestinal: Denies bloating, constipation, cramping, diarrhea, nausea or vomiting Genitourinary Genitourinary: Reports other Details: Denies vaginal odor, vaginal bleeding, or vaginal discharge ; Denies difficulty urinating or flank pain Physical Exam HEENT normocephalic Resp normal respiratory effort and normal air movement no CVA tenderness Extremity normal to inspection General Extremity: edema bilateral (trace ) NST FHR Rate Baby A Baseline: 125 Variability:: Moderate Accelerations:: 15 x 15 Decelerations:: None NST Reactive:: Yes FHR Category:: Category I Assessment & Plan (1) History of severe pre-eclampsia: PLAN: plan for iOL next week unless clinically indicated sooner. Charges/Coding Multi Select Codes Visit Charges Office Visit/Consults: 71210 OV L3 Est Urinary/Genital Urinary/Genital CPT Codes: 32884-67 non-stress test Interp
--- NOTE | 2022-02-16 10:04 | OB.TRI.NOTE ---
HPI - General HPI Narrative KAY PIRES, is a 31 F who presents to L&D to rule out PIH Maternal Data Information ANUPAM Calculator Estimated Delivery Date Method Current WG Current Estimate 03/15/22 Manual 38w 6d PFSH PFS Medical History (Updated 03/07/22 @ 08:[address] Eun Dominguez, DO) History of severe pre-eclampsia PCOS (polycystic ovarian syndrome) Home Medications PNV #01-[id number]-[id number] acid-dha 1 cap PO QHS 01/31/20 [History Last Taken 02/22/22 0900] Allergy/AdvReac Type Severity Reaction Status Date / Time No Known Allergies Allergy Verified 03/01/22 11:15 Social History Smoking Status: Never smoker alcohol intake: never substance use type: does not use caffeine: No what type of physical activity do you participate in: none seatbelt use: always do you feel safe at home: Yes additional social history: [place] History 2 Elective abortions Hx Para 2 Spontaneous abortions Hx # Term Pregnancies Ectopic pregnancies Hx # Pregnancies Multiple births # of living children 2 Past Pregnancies Del. Date Name GA/Weeks Outcome Route Bth Weight Gen Labor Lgth Anesthesia Del Locatn Provider FOB 01/31/20 Junior 39 live - full term 7lbs 13oz Male [facility] Delivery Date: 01/31/20 2 DEGREE LACERATION Florence Keen Visit Details Expected Delivery Route/Plan Labor Preferences- CB/BF classes: no labor support person: Emily labor intervention preferences: [] pain management options preferred: epidural cut cord/dad catch: yes : yes PP control planned: discussed discussed possible routes of delivery and associated risks: [] special requests: [] Plans Covid status: non immune, moderna Flu vaccine: given Tdap vaccine: given Rhogam: given LARC form signed: yes Problem list reviewed and updated with the most current plan of care details and appropriate orders placed. Relevant counseling for the gestational age provided. Continue routine care and follow up unless otherwise noted in visit notes/problem list details OB Flowsheet Initial Weight: 160 lb Date <del>?</del> EGA Weight BP Urine Prot <del>?</del> Glucose FHR FuHt Pres Dilation <del>?</del> Effaced St Visit Note 09/19/21 <del>?</del> 14w 5d 160 lb (+0 oz) 110/60 <del>?</del> 160 <del>?</del> SM- no vb cramping 10/17/21 <del>?</del> 18w 5d 167 lb 4 oz (+7 lb 4 oz) 100/70 Negative <del>?</del> Negative 155 <del>?</del> JV- no lof, vaginal bleeding, or cramping. some nausea. will start back up face to face at work. 11/18/21 <del>?</del> 23w 2d 165 lb 4 oz (+5 lb 4 oz) 106/70 Negative <del>?</del> Negative 137 <del>?</del> JV- no lof, vaginal bleeding ,or cramping. some movement has started to be noticed. pt to start a baby asa and plan for growth scans due to exposure to covid. She had a echo that was normal recently. 12/15/21 <del>?</del> 27w 1d 168 lb 4 oz (+8 lb 4 oz) 100/72 Negative <del>?</del> Negative 135 Cephalic <del>?</del> JV- no complaints today. gct ordered, tdap given. rhogam next visit. 12/28/21 <del>?</del> 29w 0d 169 lb 4 oz (+9 lb 4 oz) 118/70 Negative <del>?</del> Negative 134 29 <del>?</del> MH-No Vb, LOF Good FM. 28 wk labs, rhogam and Larc today. Growth US 30-32 wk ordered 01/13/22 <del>?</del> 31w 2d 172 lb 6 oz (+12 lb 6 oz) 118/80 Negative <del>?</del> Negative 145 32 Cephalic <del>?</del> JV- no lof, vaginal bleeding, or dec fm. she had her follow up growth at 30 weeks, will rpt at 34 weeks. 01/27/22 <del>?</del> 33w 2d 179 lb 4 oz (+19 lb 4 oz) 110/74 Negative <del>?</del> Negative 150 33 Cephalic <del>?</del> JV- no complaints today. next ultrasound 02/1402/10/22 <del>?</del> 35w 2d 181 lb (+21 lb) 112/80 <del>?</del> 146 35 Cephalic <del>?</del> MH-no VB, LOF. Good FM. Growth US 02/1402/13/22 <del>?</del> 35w 5d 180 lb (+20 lb) 111/75 3+ <del>?</del> Negative 140 <del>?</del> MH-NST only reactive. Rpt Pre E labs. Denies headache/vision changes 02/16/22 <del>?</del> 36w 1d 179 lb (+19 lb) 117/77 2+ <del>?</del> Negative 140 36 Cephalic 1 <del>?</del> 50 JV- nst only reading 10 x 20 accels with moder and mild variability toward the end. sending to L&D for further monitoring and possible bpp. gbs collected. 02/16/22 <del>?</del> 36w 1d 180 lb 8.937 oz (+20 lb 8.937 oz) 125/87 <del>?</del> <del>?</del> 02/16/22 <del>?</del> 36w 1d <del>?</del> <del>?</del> 02/21/22 <del>?</del> 36w 6d 178 lb (+18 lb) 118/76 2+ <del>?</del> Negative 140 <del>?</del> MH-nst only reactive. IOL 5/19 at 7pm. 02/22/22 <del>?</del> 37w 2d 181 lb 7.047 oz (+21 lb 7.047 oz) 156/103 141/98 142/99 160/110 124/64 107/70 117/84 114/80 110/75 110/75 110/75 106/69 114/75 126/79 126/79 123/87 123/87 117/75 117/75 105/57 105/57 113/75 113/75 120/80 120/80 108/75 108/75 115/70 115/70 117/83 117/83 122/86 122/86 116/72 124/81 119/67 113/63 117/58 114/80 <del>?</del> <del>?</del> ROS Constitutional Constitutional: Reports systems reviewed and no addt'l complaints, except as documented Gastrointestinal Gastrointestinal: Denies bloating, constipation, cramping, diarrhea, nausea or vomiting Genitourinary Genitourinary: Reports other Details: Denies vaginal odor, vaginal bleeding, or vaginal discharge ; Denies difficulty urinating or flank pain Physical Exam HEENT normocephalic Resp normal respiratory effort and normal air movement no CVA tenderness Extremity normal to inspection General Extremity: edema bilateral (trace ) NST FHR Rate Baby A Baseline: 125 Variability:: Moderate Accelerations:: 15 x 15 Decelerations:: None NST Reactive:: Yes FHR Category:: Category I Assessment & Plan (1) History of severe pre-eclampsia: PLAN: plan for iOL next week unless clinically indicated sooner. Charges/Coding Multi Select Codes Visit Charges Office Visit/Consults: 94127 OV L3 Est Urinary/Genital Urinary/Genital CPT Codes: 25082-51 non-stress test Interp
== END 2022-02-16 11:35 | disposition home or self-care (01) ==
LOC: WPOUT 09:35 → WP 09:37
PROVIDERS: PCP Family Medicine; Referring Provider Obstetrics & Gynecology; Visit Provider Obstetrics & Gynecology
DX: O09.93 Supervision of high risk pregnancy, unspecified, third trimester (principal); Z3A.39 39 weeks gestation of pregnancy
CPT/HCPCS: 59025; 59050; 99218; G0378

== ENCOUNTER → 2022-02-16 | Outpatient (CLI) | payer BC, SELFPAY ==
--- NOTE | 2022-02-25 09:09 | OB.TRI.HP_ITS ---
HPI - General HPI Narrative AKY PIRES, is a 31 F who presents to L&D @ 37 weeks 3 days gestation for extended monitoring after non-reactive nst in office. Maternal Data Information ANUPAM Calculator Estimated Delivery Date Method Current WG Current Estimate 03/15/22 Manual 37w 3d PFSH PFSH Medical History PCOS (polycystic ovarian syndrome) Home Medications PNV #[id number] acid-dha 1 cap PO QHS 01/31/20 [History Last Taken 02/22/22 09] aspirin 81 mg PO DAILY 02/22/22 [History Last Taken 02/22/22 09] Allergy/AdvReac Type Severity Reaction Status Date / Time No Known Allergies Allergy Verified 02/22/22 21:36 Social History Smoking Status: Never smoker alcohol intake: never substance use type: does not use caffeine: No what type of physical activity do you participate in: none seatbelt use: always do you feel safe at home: Yes additional social history: Mary [place] History 1 Elective abortions Hx Para 1 Spontaneous abortions Hx # Term Pregnancies Ectopic pregnancies Hx # Pregnancies Multiple births # of living children 1 Past Pregnancies Del. Date Name GA/Weeks Outcome Route Bth Weight Gen Labor Lgth Anesthesia Del Locatn Provider FOB 01/31/20 Junior 39 live - full term 7lbs 13oz Male l ocal H ELIN Delivery Date: 01/31/20 2 DEGREE LACERATION Florence Keen Visit Details Expected Delivery Route/Plan Labor Preferences- CB/BF classes: no labor support person: Emily labor intervention preferences: [] pain management options preferred: epidural cut cord/dad catch: yes : yes PP control planned: discussed discussed possible routes of delivery and associated risks: [] special requests: [] Plans Covid status: non immune, moderna Flu vaccine: given Tdap vaccine: given Rhogam: given LARC form signed: yes Problem list reviewed and updated with the most current plan of care details and appropriate orders placed. Relevant counseling for the gestational age provided. Continue routine care and follow up unless otherwise noted in visit notes/problem list details OB Flowsheet Initial Weight: 160 lb Date -?-?-?-?-?-?-?-?-?-?-?-?- EGA Weight BP Urine Prot -?-?-?-?-?-?-?-?-?-?-?-?- Glucose FHR FuHt Pres Dilation -?-?-?-?-?-?-?-?-?-?-?-?- Effaced St Visit Note 09/19/21 -?-?-?-?-?-?-?-?-?-?-?-?- 14w 5d 160 lb (+0 oz) 110/60 -?-?-?-?-?-?-?-?-?-?-?-?- 160 -?-?-?-?-?-?-?-?-?-?-?-?- SM- no vb crampi ng 10/17/21 -?-?-?-?-?-?-?-?-?-?-?-?- 18w 5d 167 lb 4 oz (+7 lb 4 oz) 100/70 Negative -?-?-?-?-?-?-?-?-?-?-?-?- Negative 155 -?-?-?-?-?-?-?-?-?-?-?-?- JV- no lof, vagi nal bleeding, or cramping. some nausea. will start back up face to face at work. 11/18/21 -?-?-?-?-?-?-?-?-?-?-?-?- 23w 2d 165 lb 4 oz (+5 lb 4 oz) 106/70 Negative -?-?-?-?-?-?-?-?-?-?-?-?- Negative 137 -?-?-?-?-?-?-?-?-?-?-?-?- JV- no lof, vagi nal bleeding ,or cramping. some movement has started to be noticed. pt to start a baby asa and plan for growth scans due to exposure to covid. She had a echo that was normal recently. 12/15/21 -?-?-?-?-?-?-?-?-?-?-?-?- 27w 1d 168 lb 4 oz (+8 lb 4 oz) 100/72 Negative -?-?-?-?-?-?-?-?-?-?-?-?- Negative 135 Cephalic -?-?-?-?-?-?-?-?-?-?-?-?- JV- no complaint s today. gct ordered, tdap given. rhogam next visit. 12/28/21 -?-?-?-?-?-?-?-?-?-?-?-?- 29w 0d 169 lb 4 oz (+9 lb 4 oz) 118/70 Negative -?-?-?-?-?-?-?-?-?-?-?-?- Negative 134 29 -?-?-?-?-?-?-?-?-?-?-?-?- MH-No Vb, LOF Go od FM. 28 wk labs, rhogam and Larc today. Growth US 30-32 wk ordered 01/13/22 -?-?-?-?-?-?-?-?-?-?-?-?- 31w 2d 172 lb 6 oz (+12 lb 6 oz) 118/80 Negative -?-?-?-?-?-?-?-?-?-?-?-?- Negative 145 32 Cephalic -?-?-?-?-?-?-?-?-?-?-?-?- JV- no lof, vagi nal bleeding, or dec fm. she had her follow up growth at 30 weeks, will rpt at 34 weeks. 01/27/22 -?-?-?-?-?-?-?-?-?-?-?-?- 33w 2d 179 lb 4 oz (+19 lb 4 oz) 110/74 Negative -?-?-?-?-?-?-?-?-?-?-?-?- Negative 150 33 Cephalic -?-?-?-?-?-?-?-?-?-?-?-?- JV- no complaint s today. next ultrasound 02/1402/10/22 -?-?-?-?-?-?-?-?-?-?-?-?- 35w 2d 181 lb (+21 lb) 112/80 -?-?-?-?-?-?-?-?-?-?-?-?- 146 35 Cephalic -?-?-?-?-?-?-?-?-?-?-?-?- MH-no VB, LOF. G ood FM. Growth US 02/1402/13/22 -?-?-?-?-?-?-?-?-?-?-?-?- 35w 5d 180 lb (+20 lb) 111/75 3+ -?-?-?-?-?-?-?-?-?-?-?-?- Negative 140 -?-?-?-?-?-?-?-?-?-?-?-?- MH-NST only reac tive. Rpt Pre E labs. Denies headache/vision changes 02/16/22 -?-?-?-?-?-?-?-?-?-?-?-?- 36w 1d 179 lb (+19 lb) 117/77 2+ -?-?-?-?-?-?-?-?-?-?-?-?- Negative 140 36 Cephalic 1 -?-?-?-?-?-?-?-?-?-?-?-?- 50 JV- nst only reading 10 x 20 accels with moder and mild variability toward the end. sending to L&D for further monitoring and possible bpp. gbs collected. 02/16/22 -?-?-?-?-?-?-?-?-?-?-?-?- 36w 1d -?-?-?-?-?-?-?-?-?-?-?-?- -?-?-?-?-?-?-?-?-?-?-?-?- 02/21/22 -?-?-?-?--?-?-?-?-?-?-?-?- 36w 6d 178 lb (+18 lb) 118/76 2+ -?-?-?-?-?-?-?-?-?-?-?-?- Negative 140 -?-?-?-?-?-?-?-?-?-?-?-?- MH-nst only reac tive. IOL 02/23 at 7pm. 02/22/22 -?-?-?-?-?-?-?-?-?-?-?-?- 37w 2d 181 lb 7.047 oz (+21 lb 7.047 oz) 156/103 141/98 142/99 160/110 124/64 107/70 117/84 114/80 110/75 110/75 110/75 106/69 114/75 126/79 126/79 123/87 123/87 117/75 117/75 105/57 105/57 113/75 113/75 120/80 120/80 108/75 108/75 115/70 115/70 117/83 117/83 122/86 122/86 116/72 124/81 119/67 113/63 117/58 114/80 -?-?-?-?-?-?-?-?-?-?-?-?- -?-?-?-?-?-?-?-?-?-?-?-?- ROS Constitutional Constitutional: Reports systems reviewed and no addt'l complaints, except as documented Gastrointestinal Gastrointestinal: Denies bloating, constipation, cramping, diarrhea, nausea or vomiting Genitourinary Genitourinary: Reports other Details: Denies vaginal odor, vaginal bleeding, or vaginal discharge ; Denies difficulty urinating or flank pain Physical Exam HEENT normocephalic Resp normal respiratory effort and normal air movement no CVA tenderness Extremity normal to inspection General Extremity: edema bilateral (trace ) NST FHR Rate Baby A Baseline: 130 Variability:: Moderate Accelerations:: 15 x 15 Decelerations:: None NST Reactive:: Yes FHR Category:: Category I Assessment & Plan (1) Conceived by in vitro fertilization: COMMENT: echo at 22-24 nl, growth US 30-32 wks, 01/04 growth nl 35w nl growth (2) Marginal insertion of umbilical cord affecting management of mother: COMMENT: nl fu growth (3) : COMMENT: normal genetics and carrier screening. missed getting AFP. Neg urine culture at [facility]. Anatomy US normal. Growth US normal (4) : QUALIFIERS: Weeks of gestation: 36 weeks Qualified Code(s): Z3A.36 - 36 weeks gestation of COMMENT: declined carrier and ntd screen. preimplantation genetics WNL. normal urine; needs tox. GBS neg (5) Proteinuria affecting : QUALIFIERS: Trimester: third trimester Qualified Code(s): O12.13 - Gestational proteinuria, third trimester COMMENT: Pre E labs, 2x wkly NST and IOL @ 37 wks (6) Rh negative status during : QUALIFIERS: Qualified Code(s): Z67.91 - Unspecified blood type, Rh negative COMMENT: Rhogam given at [facility] on 06/10/19 (7) Rh negative status during : QUALIFIERS: Trimester: third trimester Qualified Code(s): O26.893 - Other specified related conditions, third trimester; Z67.91 - Unspecified blood type, Rh negative COMMENT: given 07/21/21, plan at 28 weeks or PRN (8) Subchorionic hematoma: QUALIFIERS: Qualified Code(s): O46.8X1 - Other antepartum hemorrhage, first trimester COMMENT: persistent stable. plan weekly nsts until delivery, deliver at 39 weeks. growth q 4 weeks PLAN: nst reactive in triage. ok to discharge to home and keep next scheduled appt in office. eduardo counts reviewed Charges/Coding Multi Select Codes Visit Charges Office Visit/Consults: 83869 OV L3 Est Urinary/Genital Urinary/Genital CPT Codes: 35047-62 non-stress test Interp
== END | disposition home or self-care (01) ==
LOC: LABSPEC 13:45
PROVIDERS: PCP Family Medicine; Referring Provider Obstetrics & Gynecology; Visit Provider Obstetrics & Gynecology
DX: O09.93 Supervision of high risk pregnancy, unspecified, third trimester (principal); Z3A.00 Weeks of gestation of pregnancy not specified
CPT/HCPCS: 87081

== ENCOUNTER 2022-02-22 20:25 | Inpatient (IN) | payer BC, SELFPAY ==
[2022-02-22] VITALS (43 sets, daily range): BP systolic 106–160; BP diastolic 64–110; PULSE 71–103; RESP 18; TEMP 36.1–37; O2SAT 92–100; BMI 29.2
[2022-02-22] MEDS: Lactated Ringers 500 ML 999 ML IV (20:35)
[2022-02-22 21:00] LABS: Absolute Lymphocyte Count 2.58 X10^3/uL (0.83-4.51); Absolute Neutrophil Count 8.6 X10^3/uL (2.0-7.7); Basophil# 0.05 X10^3/uL; Basophil% 0.4 % (0-1); Eosinophil# 0.07 X10^3/uL; Eosinophils% 0.6 % (0-5); Hematocrit 36.4 % (37-47); Hemoglobin 12.5 g/dL (12.0-15.0); Lymphocyte # 2.58 X10^3/ul (0.83-4.51); Lymphocyte % 21.1 % (19-41); Mean Corp Hgb Conc 34.3 g/dL (32-36); Mean Corpuscular Hgb 28.9 pg (27.0-32.0); Mean Corpuscular Volume 84.3 fL (81-99); Mean Platelet Vol. 9.9 fl (6.2-12.0); Monocyte# 0.86 X10^3/uL; NRBC Flagged by Analyzer 0 % (0-5); Neutrophil % 70.6 % (47-70); Platelet Count 328 K/mm3 (150-450); RBC Distribution Width CV 13.3 % (11.6-14.6); RBC Distribution Width SD 40.8 fl (35.1-43.9); Red Blood Count 4.32 M/mm3 (4.2-5.4); White Blood Count 12.2 K/mm3 (4.4-11.0)
[2022-02-22] MEDS: Oxytocin 30 units/NS 500 ml 30 UNITS/500 ML IV.SOLN 334 UNITS IV (21:08)
[2022-02-22] MEDS: Magnesium Sulfate 4gm/100mL 4 GM/100 ML IV.SOLN. IV (21:15)
[2022-02-22 21:19] LABS: AST(SGOT) 17 U/L (15-37); Alanine Aminotransfer ALT/SGPT 14 U/L (13-56); Creatinine, Serum 0.65 mg/dL (0.55-1.02); EST Glomerular Filtration Rate 114 mL/min (>60); Est Glom Filt Rate - Afr Amer 138 mL/min (>60); Estimated Creatinine Clearance 118.47 ml/min; Uric Acid 6.2 mg/dL (2.6-6.0)
--- NOTE | 2022-02-22 21:22 | PLAC_PTH ---
PATIENT: KAY PIRES LOC: WP U#:[id number] AGE/SX: 31/F ROOM: WP015 RE02/22/[address]: Dr. Eun Dominguez DO : 1990 BED: 1 DIS: 02/24/2022 SPEC #: [id number] RECD: 02/22/22 23:54 STATUS: NORM [place] #: [id number] MARYURI: 02/22/22 21:[address]: Eun Dominguez DEPT: SURGICAL PATHOLOGY RECD BY: Daniela Hodgson ENTERED: 02/23/22 07:42 SP TYPE: PLACENTA OTHR DR: Dr. Luis Enrique Gambino MD Tissues: Placenta, NOS Procedures: Surgery Specimen Level V HEADER OPERATION: Vaginal delivery PRE-OP DIAGNOSIS: Suspect placental abruption, severe pre-eclampsia TISSUE SUBMITTED: Placenta MICROSCOPIC DIAGNOSIS Placenta: Placental disc - third trimester placenta (470 gm). 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 Membranes - no pathologic diagnosis. Umbilical cord - three blood vessels and no pathologic diagnosis. SJ:vidal 02/27/2022 COMMENT Case has been reviewed in consultation with Dr. Meek who concurs with the above diagnosis. IDC:AM MICROSCOPIC DESCRIPTION Slides are reviewed. GROSS DESCRIPTION SPECIMEN: PLACENTA / CLINICAL INFORMATION: A. Weight: 2.78 kg B. Gestational Age: 37 weeks C. Sex: Male PLACENTAL WEIGHT (POST FIXATION): 470 gm PLACENTAL DIMENSIONS: 17 x 14 x 3 cm PLACENTAL SHAPE: Usual ovoid PLACENTAL WEIGHT FOR GESTATIONAL AGE: Within 10-99th percentile MEMBRANES - Present A. Insertion: Marginal B. Site of rupture from edge: 6 cm from edge of placental disc C. Color of membrane: Howell-rojas D. Abnormalities: None UMBILICAL CORD - Present A. Color: Howell-rojas B. Insertion: Eccentric C. Length: 30 cm D. Diameter: 1.5 cm E. Number of vessels: Three F. Abnormalities: None PLACENTAL DISC - Present A. Color of surface: Howell-rojas B. surface abnormalities: None C. Maternal cotyledons: Intact with minimal tears D. Attached retro placental clot: No clot E. Cut surface: Dark red and ill-defined firm areas F. Lesions: None G. Separate clot: Absent SECTIONS SUBMITTED: 1. Umbilical cord ( end notched) 2. Umbilical cord, placental end 3. Membrane roll 4. Placental disc, and maternal surfaces 5. Placental disc, and maternal surfaces 6. Placental disc, and maternal surfaces AM:vidal 02/23/2022 Sections are submitted in four more cassettes, 7-10. Placental disc, and maternal surfaces / SJ:vidal 02/24/2022 TC:3 CPT: 97502
--- NOTE | 2022-02-22 21:24 | HP.PCM.OB_ITS ---
HPI - General General Date of Admission: 02/22/22 HPI Narrative KAY PIRES, is a 31 y/o @ 37 weeks 0 days who presents to labor and delivery at 8 cm dilated. The nurses called to inform that the baseline showed minimal variability and there were late decelerations. Her blood pressures was 150's/90's. The patient was originally scheduled for IOL tomorrow am for mild pre-eclampsia. Maternal Data Information ANUPAM Calculator Estimated Delivery Date Method Current WG Current Estimate 03/15/22 Manual 37w 0d PFSH PFSH Medical History PCOS (polycystic ovarian syndrome) Home Medications PNV #[id number] acid-dha 1 cap PO QHS 01/31/20 [History Last Taken 02/22/22] aspirin [Baby Aspirin] 81 mg PO DAILY 02/16/22 [History Last Taken 02/22/22] Allergy/AdvReac Type Severity Reaction Status Date / Time No Known Allergies Allergy Verified 02/22/22 20:37 Social History Smoking Status: Never smoker alcohol intake: never substance use type: does not use caffeine: No what type of physical activity do you participate in: none seatbelt use: always do you feel safe at home: Yes additional social history: Mary Fahadmariah Susan History 1 Elective abortions Hx Para 1 Spontaneous abortions Hx # Term Pregnancies Ectopic pregnancies Hx # Pregnancies Multiple births # of living children 1 Past Pregnancies Del. Date Name GA/Weeks Outcome Route Bth Weight Gen Labor Lgth Anesthesia Del Locatn Provider FOB 01/31/20 Vernon 39 live - full term 7lbs 13oz Male l ocal [facility] Delivery Date: 01/31/20 2 DEGREE LACERATION Florence Keen Visit Details Expected Delivery Route/Plan Labor Preferences- CB/BF classes: no labor support person: Emily labor intervention preferences: [] pain management options preferred: epidural cut cord/dad catch: yes : yes PP control planned: discussed discussed possible routes of delivery and associated risks: [] special requests: [] Plans Covid status: non immune, moderna Flu vaccine: given Tdap vaccine: given Rhogam: given LARC form signed: yes Problem list reviewed and updated with the most current plan of care details and appropriate orders placed. Relevant counseling for the gestational age provided. Continue routine care and follow up unless otherwise noted in visit notes/problem list details OB Flowsheet Initial Weight: 160 lb Date -?-?-?-?-?-?-?-?-?-?-?-?- EGA Weight BP Urine Prot -?-?-?-?-?-?-?-?-?-?-?-?- Glucose FHR FuHt Pres Dilation -?-?-?-?-?-?-?-?-?-?-?-?- Effaced St Visit Note 09/19/21 -?-?-?-?-?-?-?-?-?-?-?-?- 14w 5d 160 lb (+0 oz) 110/60 -?-?-?-?-?-?-?-?-?-?-?-?- 160 -?-?-?-?-?-?-?-?-?-?-?-?- SM- no vb crampi ng 10/17/21 -?-?-?-?-?-?--?-?-?-?-?-?- 18w 5d 167 lb 4 oz (+7 lb 4 oz) 100/70 Negative -?-?-?-?-?-?-?-?-?-?-?-?- Negative 155 -?-?-?-?-?-?-?-?-?-?-?-?- JV- no lof, vagi nal bleeding, or cramping. some nausea. will start back up face to face at work. 11/18/21 -?-?-?-?-?-?-?-?-?-?-?-?- 23w 2d 165 lb 4 oz (+5 lb 4 oz) 106/70 Negative -?-?-?-?-?-?-?-?-?-?-?-?- Negative 137 -?-?-?-?-?-?-?-?-?-?-?-?- JV- no lof, vagi nal bleeding ,or cramping. some movement has started to be noticed. pt to start a baby asa and plan for growth scans due to exposure to covid. She had a echo that was normal recently. 12/15/21 -?-?-?-?-?-?-?-?-?-?-?-?- 27w 1d 168 lb 4 oz (+8 lb 4 oz) 100/72 Negative -?-?-?-?-?-?-?-?-?-?-?-?- Negative 135 Cephalic -?-?-?--?-?-?-?-?-?-?-?-?- JV- no complaint s today. gct ordered, tdap given. rhogam next visit. 12/28/21 -?-?-?-?-?-?-?-?-?-?-?-?- 29w 0d 169 lb 4 oz (+9 lb 4 oz) 118/70 Negative -?-?-?-?-?-?-?-?-?-?-?-?- Negative 134 29 -?-?-?-?-?-?-?-?-?-?-?-?- MH-No Vb, LOF Go od FM. 28 wk labs, rhogam and Larc today. Growth US 30-32 wk ordered 01/13/22 -?-?-?-?-?-?-?-?-?-?-?-?- 31w 2d 172 lb 6 oz (+12 lb 6 oz) 118/80 Negative -?-?-?-?-?-?-?-?-?-?-?-?- Negative 145 32 Cephalic -?-?-?-?-?-?-?-?-?-?-?-?- JV- no lof, vagi nal bleeding, or dec fm. she had her follow up growth at 30 weeks, will rpt at 34 weeks. 01/27/22 -?-?-?-?-?-?-?-?-?-?-?-?- 33w 2d 179 lb 4 oz (+19 lb 4 oz) 110/74 Negative -?-?-?-?-?-?-?-?-?-?-?-?- Negative 150 33 Cephalic -?-?-?-?-?-?-?-?-?-?-?-?- JV- no complaint s today. next ultrasound 02/1402/10/22 -?-?-?-?-?-?-?-?-?-?-?-?- 35w 2d 181 lb (+21 lb) 112/80 -?-?-?-?-?-?-?-?-?-?-?-?- 146 35 Cephalic -?-?-?-?-?-?-?-?-?-?-?-?- MH-no VB, LOF. G ood FM. Growth US 02/1402/13/22 -?-?-?-?-?-?-?-?-?-?-?-?- 35w 5d 180 lb (+20 lb) 111/75 3+ -?-?-?-?-?-?-?-?-?-?-?-?- Negative 140 -?-?-?-?-?-?-?-?-?-?-?-?- MH-NST only reac tive. Rpt Pre E labs. Denies headache/vision changes 02/16/22 -?-?-?-?-?-?-?-?-?-?-?-?- 36w 1d 179 lb (+19 lb) 117/77 2+ -?-?-?-?-?-?-?-?-?-?-?-?- Negative 140 36 Cephalic 1 -?-?-?-?-?-?-?-?-?-?-?-?- 50 JV- nst only reading 10 x 20 accels with moder and mild variability toward the end. sending to L&D for further monitoring and possible bpp. gbs collected. 02/21/22 -?-?-?-?-?-?-?-?-?-?-?-?- 36w 6d 178 lb (+18 lb) 118/76 2+ -?-?-?-?-?-?-?-?-?-?-?-?- Negative 140 -?-?-?-?-?-?-?-?-?-?-?-?- -nst only reac tive. IOL 02/23 at 7pm. 02/22/22 -?-?-?-?-?-?-?-?-?--?-?-?- 37w 0d 181 lb 7.047 oz (+21 lb 7.047 oz) 156/103 141/98 142/99 160/110 124/64 -?-?-?-?-?-?-?-?-?-?-?-?- -?--?-?-?-?-?-?-?-?-?-?-?- ROS Constitutional Constitutional: Denies change in weight, fatigue, fever(s), headache(s), poor appetite or weakness Eyes Eyes: Denies blurry vision, change in vision, seeing flashes or spots in vision ENT HEENT: Denies dizziness, headache(s), loss taste/smell or sore throat Cardiovascular Cardiovascular: Denies chest pain, dizziness, dyspnea, irregular heart rhythm, leg edema, palpitations, rapid heart rate or vomiting Respiratory/Chest Respiratory/Chest: Denies chest tightness, cough, dyspnea or breast pain Gastrointestinal Gastrointestinal: Denies abdominal pain, anorexia, constipation, cramping, diarrhea, hemorrhoids, vomiting or weight changes Genitourinary Genitourinary: Denies dysuria, flank pain, genital lesions, genital pain, urinary frequency or urinary urgency Musculoskeletal Musculoskeletal: Denies back pain, difficulty walking, joint pain, limited range of motion, muscle cramps or numbness Integumentary Integumentary: Denies lesions or unusual bruising Neurologic Neurologic: Denies abnormal movements, abnormal speech, dizziness, numbness, seizure-like activity or syncope Psychiatric Psychiatric: Denies anxiety, behavioral changes, change in appetite, change in libido, cognitive impairment, confusion, depression, difficulty concentrating, hallucinations or suicidal thoughts Endocrine Endocrinology: Denies excessive sweating, polydipsia or polyuria Hematologic/Lymphatic Hematologic/Lymphatic: Denies easy bleeding, easy bruising or lymphadenopathy Allergic/Immunologic Allergic/Immunologic: Denies itchy eyes, lip swelling, seasonal rhinorrhea, rhinitis, throat swelling, tongue swelling, eczemia, wheezing or asthma Vital Signs Vital Signs Vital Signs: 02/22/22 20:20 02/22/22 20:21 02/22/22 20:37 Pulse Rate 86 76 Blood Pressure 156/103 H 141/98 H BP Systolic 156 141 BP Diastolic 103 98 Pulse Ox 98 02/22/22 20:40 02/22/22 20:45 02/22/22 20:50 Pulse Rate 96 83 83 Blood Pressure BP Systolic BP Diastolic Pulse Ox 100 100 100 02/22/22 20:52 02/22/22 21:07 02/22/22 21:16 Pulse Rate 83 82 96 Blood Pressure 142/99 H 160/110 H BP Systolic 142 160 BP Diastolic 99 110 Pulse Ox 98 02/22/22 21:22 Pulse Rate 90 Blood Pressure BP Systolic BP Diastolic Pulse Ox 92 Weight Weight: 181 lb 7.047 oz Body Mass Index (BMI) 29.2 Physical Exam Const alert, oriented x3, no apparent distress and healthy appearing General Appearance: cooperative; Negative for anxious HEENT normocephalic Face and Sinus: normal facial exam Eyes EOMs intact bilaterally and no scleral icterus General Eye: normal appearance of both eyes Neck full ROM and supple Lymph Lymphatic: no lymphadenopathy noted Chest Chest: abnormal inspection of the chest Resp normal respiratory effort Effort and Inspection: able to speak in complete sentences Cardio regular rate GI soft to palpation and non-tender Inspection: gravid Palpation: soft; Negative for tender external exam normal Amniotic Fluid: other cx 8/90/0, membranes ruptured artificially and was pink tinged. Back/Spine no CVA tenderness Extremity normal to inspection, full ROM and no clubbing, cyanosis or edema General Extremity: Negative for calf tenderness or edema Skin Lesions: no lesions Rashes: no rashes Psych mental status grossly normal Labs Labs Labs: Blood Type A NEGATIVE Antibody Screen NEGATIVE Hct 36.4 % (37-47) L Hgb 12.5 g/dL (12.0-15.0) Obstetrics US Glucose 1 Hr 50 gm 134 mg/dL (70-140) Rhogam given: No Assessment & Plan (1) Proteinuria affecting : QUALIFIERS: Trimester: third trimester Qualified Code(s): O12.13 - Gestational proteinuria, third trimester COMMENT: Pre E labs, 2x wkly NST and IOL @ 37 wks (2) Rh negative status during : QUALIFIERS: Trimester: third trimester Qualified Code(s): O26.893 - Other specified related conditions, third trimester; Z67.91 - Unspecified blood type, Rh negative COMMENT: given 07/21/21, plan at 28 weeks or PRN (3) : QUALIFIERS: Weeks of gestation: 36 weeks Qualified Code(s): Z3A.36 - 36 weeks gestation of COMMENT: declined carrier and ntd screen. preimplantation genetics WNL. normal urine; needs tox. GBS neg (4) Conceived by in vitro fertilization: COMMENT: echo at 22-24 nl, growth US 30-32 wks, 01/04 growth nl 35w nl growth (5) Supervision of high-risk : QUALIFIERS: Trimester: third trimester Qualified Code(s): O09.93 - Supervision of high risk , unspecified, third trimester COMMENT: PRR ANUPAM 03/15/22 boy PC [place] Emily PLAN: admit patient for active labor management and pre-eclampsia patient is progressing quickly however, section discussed if does not dilate soon or if tracing worsens. after rupture of membranes there was an acceleration and variability became mild to moderate and tracing overall more reassuring.
--- NOTE | 2022-02-22 21:27 | EX.PCM.OBRPT ---
Assessment & Plan (1) Proteinuria affecting : QUALIFIERS: Trimester: third trimester Qualified Code(s): O12.13 - Gestational proteinuria, third trimester COMMENT: Pre E labs, 2x wkly NST and IOL @ 37 wks (2) Rh negative status during : QUALIFIERS: Trimester: third trimester Qualified Code(s): O26.893 - Other specified related conditions, third trimester; Z67.91 - Unspecified blood type, Rh negative COMMENT: given 07/21/21, plan at 28 weeks or PRN (3) : QUALIFIERS: Weeks of gestation: 36 weeks Qualified Code(s): Z3A.36 - 36 weeks gestation of COMMENT: declined carrier and ntd screen. preimplantation genetics WNL. normal urine; needs tox. GBS neg (4) Conceived by in vitro fertilization: COMMENT: echo at 22-24 nl, growth US 30-32 wks, 01/04 growth nl 35w nl growth (5) Supervision of high-risk : QUALIFIERS: Trimester: third trimester Qualified Code(s): O09.93 - Supervision of high risk , unspecified, third trimester COMMENT: PRR ANUPAM 03/15/22 boy PC [place] Lexx Maternal Data Information ANUPAM Calculator Estimated Delivery Date Method Current WG Current Estimate 03/15/22 Manual 37w 0d Vaginal Delivery Maternal Presentation Maternal Presentation: Active Labor Type of Induction: Amniotomy Operative Information Date of Procedure: 02/22/22 Pre-Operative Diagnosis: 37 weeks , pre-eclampsia and active labor Post-Operative Diagnosis: 37 weeks , pre-eclampsia and active labor Surgery / Procedure Performed: Spontaneous Vaginal Delivery Type of Anesthesia: Local with 2% Lidocaine Estimated Blood Loss: 300cc Findings Description of Procedure: Patient began pushing and delivered the head in the BRENDA presentation. The head was delivered atraumatically. The anterior and posterior shoulders delivered without complication followed by the rest of the infant and the was placed on the maternal abdomen. Delayed cord clamping was employed for approximately 60 seconds. Cord was clamped and cut and gentle traction was applied to the cord and the placenta delivered spontaneously immediately following it was noted to be intact with three-vessel cord. The perineum and vagina were inspected and noted to have a 1st degree perineal laceration repaired with a 3-0 vicryl rapide. EBL was 300cc. Patient and infant tolerated delivery well. Presentation: Vertex Amniotic Fluid Description: Bloody (slight blood tinged ) Placental Delivery Description: Spontaneous Placenta Disposition: [facility] Cord Vessel Description: 3 Vessels Cord Entanglement: None Cord Gases: ABG and VBG A Gender: Male (1 minute): 8 (5 minute): 9 Delayed Cord Clamping: Yes Post Vaginal Delivery Medications Given After Delivery: IV Pitocin Episiotomy Description: None Laceration: 1st degree Complication Complications: None Multi Select Codes Urinary/Genital Urinary/Genital CPT Codes: 15089 Vaginal Delivery [facility]
--- NOTE | 2022-02-22 21:30 | PCM.DC ---
Discharge Instructions Diet Discharge Diet: No restrictions Activity Discharge Activity: Return to Normal Activity, May Not Drive (while taking narcotic pain medications.) and May Shower May resume sexual activity in: 4-6 weeks Dressing / Incision Call your doctor if your incision/area has: Continuous Slow Oozing, Sudden Increased Bleeding, Increased Pain/ Swelling, Increased Redness and Foul Smelling Discharge Follow Up Care Please Follow Up With: Eun Dominguez DO When: Call [phone] to make an appointment with your doctor in 6 weeks. If you had elevated blood pressure or 4th degree laceration, you will need to be seen in 2 weeks. Test Results: Test results from this visit will be discussed in further detail at your follow-up appointment, if applicable. Discharge Plan Admission Admit Date/Time: 02/22/22 20:25 Primary Reason for Your Visit: vaginal delivery and pre-eclampsia Attending Provider: Eun Dominguez Primary Care Provider: Luis Enrique Gambino Discharge Orders/Prescriptions Prescriptions: New ibuprofen 600 mg tablet 600 mg PO Q6H PRN (Reason: pain) 7 Days Qty: 28 RF: 0 Continued PNV #[id number] acid-dha 35 mg iron-5 mg iron-1 mg capsule 1 cap PO QHS RF: 0 Discontinued aspirin [Baby Aspirin] 81 mg Tablet,Chewable 81 mg PO DAILY RF: 0 Referrals / Follow Up: Luis Enrique Gambino MD [Primary Care Provider] - Disposition Disposition (needs filled in before D/C Order can be placed): Home, Self Care
[2022-02-22] MEDS: Magnesium Sulfate 4gm/100mL 2 GM/50 ML IV.SOLN. IV (21:35)
[2022-02-22] MEDS: Magnesium Sulfate 20 GM/500 ML BAG IV (21:46)
[2022-02-22 22:19] LABS: Protein, Urine (Random) 426.7 mg/dL (<11.9); Protein:Creat Ratio 2466 mg/g CRE (0-200)
[2022-02-22] MEDS: Ibuprofen 600 MG Tablet PO (22:32)
[2022-02-22] MEDS: 0.9% Saline Lock 10 ML Syringe IV (22:33)
[2022-02-22 23:56] LABS: Pathology Specimen OB SEE PATHOLOGY REPORT
[2022-02-23] VITALS (23 sets, daily range): BP systolic 105–124; BP diastolic 57–87; PULSE 67–87; RESP 15–18; TEMP 36.1–36.5; O2SAT 96–98
--- NOTE | 2022-02-23 07:55 | PCM.PN.OB ---
Subjective Subjective Patient doing well without complaints. Tolerating PO. Ambulating and voiding without difficulty. Feeding well. Denies chest pain, shortness of breath, calf pain/swelling, fevers, chills, lightheadedness. Objective Data Objective Data Vital Signs: Vital Signs Temp Pulse Resp BP Pulse Ox 97 F L 79 16 117/83 H 96 02/23/22 06:31 02/23/22 07:29 02/23/22 06:31 02/23/22 07:29 02/23/22 06:31 Oxygen Delivery Method Room Air Weight: 181 lb 7.047 oz Body Mass Index (BMI) 29.2 Intake & Output: Intake and Output for Last 24 Hours 02/21/22 02/22/22 02/23/22 23:59 23:59 23:59 Intake Total 1150 / 1150 743.33 / 743.33 Output Total 1000 / 1000 Balance 1150 / 1150 -256.67 / -256.67 Lab / Micro Data Result Diagrams: 02/22/22 20:35 02/22/22 20:35 Labs: Laboratory Results - last 24 hr 02/22/22 20:35: WBC 12.2 H, RBC 4.32, Hgb 12.5, Hct 36.4 L, MCV 84.3, MCH 28.9, MCHC 34.3, RDW Std Deviation 40.8, RDW Coeff of Jayce 13.3, Plt Count 328, MPV 9.9, Immature Gran % (Auto) 0.300, Neut % (Auto) 70.6 H, Lymph % (Auto) 21.1, O'Brien % (Auto) 7.0, Eos % (Auto) 0.6, Baso % (Auto) 0.4, Absolute Neuts (auto) 8.6 H, Absolute Lymphs (auto) 2.58, Nucleated RBC % 0 02/22/22 20:35: Blood Type A NEGATIVE, Antibody Screen TNP 02/22/22 20:35: U Random Total Protein 426.7 H, Urine Creatinine 173.00, Protein/Creatinin Ratio 2466 H 02/22/22 20:35: Creatinine 0.65, Estim Creat Clear Calc 118.47, Est GFR (MDRD) Af Amer 138, Est GFR (MDRD) Non-Af 114, Uric Acid 6.2 H, AST 17, ALT 14 02/22/22 20:35: Antibody Screen NEGATIVE 02/22/22 23:40: Screen NEGATIVE, Baby's Blood Type A POSITIVE, Baby's CHOCO NEGATIVE Micro: Microbiology 02/22/22 20:35 Nasal Secretion SARS-CoV-2 Antigen (Rapid) - Final ROS Constitutional Constitutional: Denies chills, fatigue, fever(s), poor appetite or weakness Eyes Eyes: Denies blurry vision, change in vision, seeing flashes or spots in vision ENT HEENT: Denies dizziness, headache(s), loss taste/smell or sore throat Cardiovascular Cardiovascular: Denies chest pain, dizziness, dyspnea, irregular heart rhythm, palpitations or rapid heart rate Respiratory/Chest Respiratory/Chest: Denies chest tightness, cough, dyspnea or breast pain Gastrointestinal Gastrointestinal: Denies abdominal pain, constipation or vomiting Genitourinary Genitourinary: Denies dysuria or flank pain Musculoskeletal Musculoskeletal: Denies difficulty walking, joint pain, limited range of motion or numbness Neurologic Neurologic: Denies abnormal movements, abnormal speech, dizziness, numbness, seizure-like activity or syncope Psychiatric Psychiatric: Denies anxiety, behavioral changes, change in appetite, confusion, depression or suicidal thoughts Physical Exam Const alert, oriented x3 and no apparent distress General Appearance: cooperative and comfortable Resp normal respiratory effort Cardio regular rate GI normal to inspection, nondistended, normoactive bowel sounds GI Narrative: uterus is firm below umbilicus Palpation: soft Back/Spine no CVA tenderness and thoraco-lumbar ROM normal Extremity normal to inspection, no clubbing, cyanosis or edema, no calf tenderness and no pedal edema Psych mental status grossly normal, thought process normal, cooperative, affect normal, speech normal, activity/motor behavior normal, denies homicidal ideation and denies suicidal ideation Assessment & Plan (1) Status post vaginal delivery: COMMENT: BB griselda Costello - JV pre-eclampsia on magnesium sulfate PLAN: s/p PPD # 1 1. routine post delivery care 2. breast feeding- support given 3. rh positive 4. rubella immune 5. mag down to 1 g/hr, stop at 24 hrs and continue close observation. bp is low /normal.
[2022-02-23] MEDS: Ibuprofen 600 MG Tablet PO (12:54)
[2022-02-23] MEDS: Acetaminophen 500 MG Tablet 1000 MG PO (15:13)
[2022-02-24 02:32] VITALS: BP 117/58; PULSE 89; RESP 16; TEMP 36.4
[2022-02-24 02:33] VITALS: BP 117/58; PULSE 89
--- NOTE | 2022-02-24 08:40 | PN.OBGYN_ITS ---
Subjective Subjective Patient doing well without complaints. Tolerating PO. Ambulating and voiding without difficulty. Feeding well. Denies chest pain, shortness of breath, calf pain/swelling, fevers, chills, lightheadedness. Objective Data Objective Data Vital Signs: Vital Signs Temp Pulse Resp BP Pulse Ox 97.6 F L 89 16 117/58 L 96 02/24/22 02:32 02/24/22 02:33 02/24/22 02:32 02/24/22 02:33 02/23/22 23:46 Oxygen Delivery Method Room Air Weight: 181 lb 7.047 oz Body Mass Index (BMI) 29.2 Intake & Output: Intake and Output for Last 24 Hours 02/22/22 02/23/22 02/24/22 23:59 23:59 23:59 Intake Total 1150 / 1150 929.58 / 929.58 Output Total 1000 / 1000 Balance 1150 / 1150 -70.42 / -70.42 Lab / Micro Data Result Diagrams: 02/22/22 20:35 02/22/22 20:35 Micro: Microbiology 02/22/22 20:35 Nasal Secretion SARS-CoV-2 Antigen (Rapid) - Final ROS Constitutional Constitutional: Denies chills, fatigue, fever(s), poor appetite or weakness Eyes Eyes: Denies blurry vision, change in vision, seeing flashes or spots in vision ENT HEENT: Denies dizziness, headache(s), loss taste/smell or sore throat Cardiovascular Cardiovascular: Denies chest pain, dizziness, dyspnea, irregular heart rhythm, palpitations or rapid heart rate Respiratory/Chest Respiratory/Chest: Denies chest tightness, cough, dyspnea or breast pain Gastrointestinal Gastrointestinal: Denies abdominal pain, constipation or vomiting Genitourinary Genitourinary: Denies dysuria or flank pain Musculoskeletal Musculoskeletal: Denies difficulty walking, joint pain, limited range of motion or numbness Neurologic Neurologic: Denies abnormal movements, abnormal speech, dizziness, numbness, s eizure-like activity or syncope Psychiatric Psychiatric: Denies anxiety, behavioral changes, change in appetite, confusion, depression or suicidal thoughts Physical Exam Const alert, oriented x3 and no apparent distress General Appearance: cooperative and comfortable Resp normal respiratory effort Cardio regular rate GI normal to inspection, nondistended, normoactive bowel sounds GI Narrative: uterus is firm below umbilicus Palpation: soft Back/Spine no CVA tenderness and thoraco-lumbar ROM normal Extremity normal to inspection, no clubbing, cyanosis or edema, no calf tenderness and no pedal edema Psych mental status grossly normal, thought process normal, cooperative, affect normal, speech normal, activity/motor behavior normal, denies homicidal ideation and denies suicidal ideation Assessment & Plan (1) Status post vaginal delivery: COMMENT: CANDI griselda Costello - JV pre-eclampsia on magnesium sulfate PLAN: plan for dc to home today- follow up 1 week for bp check in office
[2022-02-24 09:04] VITALS: BP 114/80; PULSE 81; PULSE 84; RESP 16; TEMP 36.5; O2SAT 97
--- NOTE | 2022-02-24 09:56 | NURSING ---
Pt to make follow up appointment in 1 week in [place] office for BP check.
--- NOTE | 2022-02-28 15:26 | NURSING ---
Follow up call done, mother reports no complications or problems since being home, denies questions. Was very satisfied with her care
== END 2022-02-24 11:47 | disposition home or self-care (01) | DRG 807 ==
LOC: WPOUT 20:27 → WP 20:27
PROVIDERS: Admitting Provider Obstetrics & Gynecology; PCP Family Medicine; Visit Provider Obstetrics & Gynecology
DX: O76 Abnormality in fetal heart rate and rhythm complicating labor and delivery (principal); Z37.0 Single live birth; O12.14 Gestational proteinuria, complicating childbirth; Z20.822 Contact with and (suspected) exposure to COVID-19; Z3A.37 37 weeks gestation of pregnancy; O70.0 First degree perineal laceration during delivery; Z79.82 Long term (current) use of aspirin
CPT/HCPCS: 59025; 59050; 82565; 82570; 84156; 84450; 84460; 84550; 85025; 85461; 86850; 86900; 86901; 87426; 88307; 90384; 99218; J7120; A4216; G0378; J2790

== ENCOUNTER → 2022-04-05 | Outpatient (CLI) | payer BC, SELFPAY ==
[2022-04-09 10:32] LABS: HPV APTIMA, High Risk Negative (Negative)
== END | disposition home or self-care (01) ==
LOC: LABSPEC 16:53
PROVIDERS: PCP Family Medicine; Referring Provider Obstetrics & Gynecology; Visit Provider Obstetrics & Gynecology
DX: Z12.4 Encounter for screening for malignant neoplasm of cervix (principal)
CPT/HCPCS: 87624; 88175; G0145

== ENCOUNTER → 2025-05-19 | Outpatient (CLI) | payer BC, SELFPAY ==
[2025-05-19 12:34] LABS: Hematocrit 38.3 % (37-47); Hemoglobin 13.5 g/dL (12.0-15.0); Immature Granulocytes Count 0.020 X10^3/uL (0.0-0.0); Mean Corp Hgb Conc 35.2 g/dL (32-36); Mean Corpuscular Volume 90.3 fL (81-99); Mean Platelet Vol. 9.2 fl (6.2-12.0); NRBC Flagged by Analyzer 0 % (0-5); Platelet Count 311 K/mm3 (150-450); RBC Distribution Width CV 11.9 % (11.6-14.6); RBC Distribution Width SD 39.4 fl (35.1-43.9); Red Blood Count 4.24 M/mm3 (4.2-5.4); White Blood Count 8.7 K/mm3 (4.4-11.0)
[2025-05-19 13:29] LABS: HIV Nonreactive (Nonreactive); Hepatitis B Surface Antigen Nonreactive (Nonreactive); Hepatitis C Antibody Nonreactive (Nonreactive); Syphilis Antibodies Nonreactive (Nonreactive)
[2025-05-19 17:28] LABS: Creatinine, Urine (random) 64.90 mg/dL (28.00-217.00); Protein, Urine (Random) 8.1 mg/dL (0.0-12.0); Protein:Creat Ratio 124 mg/g CRE (0-200)
[2025-05-22 05:07] LABS: Chlamydia By Nucleic Acid AMP Negative (Negative); Gonococcus By Nucleic Acid AMP Negative (Negative)
== END | disposition home or self-care (01) ==
PROVIDERS: PCP Family Medicine; Referring Provider Obstetrics & Gynecology; Visit Provider Obstetrics & Gynecology
DX: O09.291 Supervision of pregnancy with other poor reproductive or obstetric history, first trimester (principal); Z3A.00 Weeks of gestation of pregnancy not specified
CPT/HCPCS: 36415; 82570; 84156; 85025; 86703; 86762; 86780; 86803; 86850; 86900; 86901; 87086; 87088; 87340; 87491; 87591

== ENCOUNTER → 2025-09-28 | Outpatient (CLI) | payer BC, SELFPAY ==
[2025-09-28 09:24] LABS: Hematocrit 35.8 % (37-47); Hemoglobin 12.3 g/dL (12.0-15.0); Immature Granulocytes Count 0.040 X10^3/uL (0.0-0.0); Mean Corp Hgb Conc 34.4 g/dL (32-36); Mean Corpuscular Volume 91.6 fL (81-99); Mean Platelet Vol. 9.0 fl (6.2-12.0); NRBC Flagged by Analyzer 0 % (0-5); Platelet Count 297 K/mm3 (150-450); RBC Distribution Width CV 12.4 % (11.6-14.6); RBC Distribution Width SD 41.0 fl (35.1-43.9); Red Blood Count 3.91 M/mm3 (4.2-5.4); White Blood Count 9.8 K/mm3 (4.4-11.0)
[2025-09-28 10:16] LABS: Glucose Challenge Gest 1H 50g 95 mg/dL (70-140); HIV Nonreactive (Nonreactive); Syphilis Antibodies Nonreactive (Nonreactive)
[2025-09-28 17:20] LABS: Xtra Tube EP Lab EXTRA TUBE
== END | disposition home or self-care (01) ==
PROVIDERS: PCP Family Medicine; Referring Provider Advanced Practice Midwife; Visit Provider Advanced Practice Midwife
DX: O09.92 Supervision of high risk pregnancy, unspecified, second trimester (principal)
CPT/HCPCS: 36415; 82950; 85025; 86703; 86780